=== PATIENT | male | born 1945 | race Caucasian/White ===

== ENCOUNTER 2024-04-07 13:06 | Inpatient (IN) | payer MEDICARE, OTHER, SELFPAY ==
[2024-04-07] VITALS (17 sets, daily range): BP systolic 140–168; BP diastolic 69–103; BMI 30.9; BMI 29.3
--- NOTE | 2024-04-07 11:09 | HPS.HSE ---
Addendum entered and electronically signed by Jose Abreu MD 04/07/24 12:57:
I saw and examined the patient.
The BRUSH MACHINE SETTER's note was reviewed and I agree with the note.
Comment: 79 y/o male with dyslipidemia, right carotid stenosis (followed by Dr. Metz, and history of left CEA 2013), GERD, HTN, and JOHN on CPAP who has been having chest discomfort with exertion. More recently, he noticed it with taking out the
trash, which was unusual since he typically only feels SOB with this. Initially I offered cath and med management but given stable symptoms, we decided to further risk stratify with [facility]. It was high risk, and I am recommending direct cardiac cath.
On exam he has no m/r/g, rrr lungs cta, he is obes.
CAD: will proceed to cath. continue to optimize med therapy. HTN: chronic stable. Obesity, wt loss needed.
d/w Dr El
Original Note:
Family Physician
-
Family Physician: Dr. Jerrod Caldwell
Administrative Associate: Dr. Abreu
Chief Complaint
-
chest discomfort, abnormal stress test
History of Present Illness
79 y/o male with dyslipidemia, right carotid stenosis (followed by Dr. Metz, and history of left CEA 2013), GERD, HTN, and JOHN on CPAP who has been having chest discomfort with exertion. More recently, he noticed it with taking out the trash, which
was unusual since he typically only feels SOB with this. He had a stress echo today, which was abnormal and he is sent to the ER and will be admitted for cath. He is CP free at the time of my assessment.
Medical History
Past Medical History
Past Medical History: Reports HTN, Hypercholesterolemia and Other (carotid disease, JOHN)
Past Surgical History: Reports Other (CEA)
Social History
Tobacco: Non-smoker
Alcohol: Daily (wine)
Family History
Family History: Hypertension (mom)
Allergies / Home Medications
Allergies reflects when Allergies were last updated in [employer].
Home Medications with original date entered in [employer]
Allergy/Medication List:
Allergies: NKDA
Home medications:
Aspirin 81 mg PO daily
Azelastine 137 mcg 1 spray per nostril BID
Benzonatate 200 mg PO TID
Finasteride 5 mg PO daily
Flonase 50 mcg/ACT spray 1 spray per nostril daily
folic acid 400 mcg daily PO
Losartan/HCTZ 100/25 mg PO daily
Crestor 40 mg PO daily
Nitro PRN
Review of Systems
-
History Source: Patient
A 12 point ROS was completed and negative except as noted: Yes
Cardiac: Reports Chest Pain
Physical Exam
Vital Signs
Vital Signs
Temp Pulse Resp BP Pulse Ox
98.1 F 83 18 168/88 95
04/07/24 10:55 04/07/24 10:55 04/07/24 10:55 04/07/24 10:55 04/07/24 10:55
Physical Exam
General: Well Developed, Well Nourished and No Apparent Distress
HEENT: NormoCephalic and Anicteric
Respiratory: Clear and Non Labored Respirations
Cardiac: Regular Rhythm
Skin: Warm and Dry
Neuro: AO x 3
Psych: Calm
Data Reviewed
-
Medical Tests (Nuc Med, Echo, EKG etc): Image Personally Visualized and interpreted (EKG NSR) and Report Reviewed by me (Stress echo as noted below)
Lab Data: Labs Reviewed by me (05/20/23 LDL 88) and Other (updated labs are pending)
Impression/Plan
-
IMPRESSION/PLAN:
Abnormal stress test, chest discomfort:
-Stress echo 04/07/24: Abnormal stress echocardiogram. EKG changes to 3 mm in 2, 3, aVF, V5, V6 and in aVR elevation seen with exercise. Mild chest pain peak immediately upon completing exercise. LAD and left circumflex wall motion abnormalities
with stress. EF drops from 65 to 70% to 40% with exercise. LV dilated with exercise. Overall, this is a high risk test result.
-high risk stress test as below. Suspected coronary artery disease with angina (has been stable noted with exertion, but has become progressive), which is threat to life.
-No CP currently
-continue ASA (already took this AM), statin, metoprolol
-cardiac catheterization today- discussed procedure with patient
-check hgbA1C and Lipids
-EKG stable. Trop pending in ER- if elevated, will trend.
JOHN:
-continue CPAP
Dyslipidemia:
-update labs
-continue statin. Continue Zetia (recently started).
Carotid artery disease:
-continue ASA and statin and follow with vascular team
HTN:
-elevated in ER
-continue meds and monitor
Obesity:
-will benefit from diet, exercise, and weight loss in long-term
--- NOTE | 2024-04-07 11:22 | ED.GENMED ---
History of Present Illness
General
Chief Complaint: Chest Pain
Source: patient
Exam Limitations: none
Time Seen by Provider: 04/07/24 11:02
Nursing documentation reviewed up to this point in time: agreed with
History of Present Illness
History of Present Illness:
79 y/o M with h/o HTN, JOHN, HLD
carotid stenosis
here from [facility] for abnormal + stresst est showing ischemic changes 3 mm lateral depression while donig an exercise stress test today
echo showed anterior interseptal hypokinesis
he is currently pain free
while on the treadmill he felt sob but no CP
had previously ahd angina with exertion which is what lead him tohavig the stress
NPO
no nausea, vomiting, leg swelling
Past History
Past History
ED Past Medical History: GERD, HTN, Hypercholesterolemia, Other (Obstructive sleep apnea) and Other (Carotid disease)
ED Past Surgical History: Orthopedic, Urological and Other (Uvulectomy, left carotid endarterectomy 2013)
Social History
Tobacco: Non-smoker
Alcohol: Daily (Wine with dinner)
Personal:
Living: with family
Employment: Retired
Family History
Family History: Other (Noncontributory.)
Review of Systems
Review of Systems
Allergies reviewed?: Yes
All Other Systems: Not applicable
Phy Exam
Physical Exam
Physical Exam:
GENERAL: Alert , in no apparent distress
EYE: pupils equal and reactive
NECK: Supple
ENT: o/p clr, mmm.
CARDIAC: Regular rate and rhythm .
LUNGS: Clear breath sounds bilaterally, no acute respiratory distress, no wheezes/rales/rhonchi
ABDOMEN: Soft, without focal tenderness, no r/g, no cvat, normal bowel sounds
NEUROLOGICAL: Alert and oriented, no focal neuro deficits
SKIN: Warm and dry, skin intact.
MUSCULOSKELETAL: No edema, well perfused. neg carl's sign
PSYCH: Normal and appropriate interaction.
Scores
Heart Score for Chest Pain Patients
STEMI patient?: No
History: Highly Suspicious
ECG: Nonspecific Repolarization
Age: >/= 65 years
Risk Factors: >/= 3 Risk Factors or History of CAD
Troponin: </= Normal Limit
Heart Score for Chest Pain Patients: 7
Heart Score Risk: 72.7 % MACE over next 6 weeks
Course
Orders/Labs/Results
Orders:
Orders
04/07/24 Lunch
Cholesterol Lowering
At Your Request: Full Participation
Does patient need a safe tray?: No
Cholesterol Lowering: Sodium, 2 Gram
04/07/24 11:00
Electrocardiogram (*1) Urgent
Reason for Study: Chest Pain
04/07/24 11:01
EKG- Treatment ONCE
04/07/24 11:22
Complete Blood Count/With Diff Urgent
Comprehensive Metabolic Panel Urgent
Glycohemoglobin (HgbA1c) Urgent
Troponin I Urgent
04/07/24 11:36
Admit/Transfer Patient As Directed
Co-Sign Provider:
Level of Care: Inpatient admission
Assign to:: IVU
Physician / Group: Dr. Alvarez
Diagnosis: CAD, abnormal stress test, chest discomfort
Reason for Hospitalization: abnormal stress test, chest discomfort
Expected length of stay greater than two midnights?: Yes
ELOS- Estimated Length of Stay in days: 3
I certify the patient meets the requirements for IP care: Yes
04/07/24 11:57
Midazolam HCl [Versed] 2 mg .ROUTE .STK-MED ONE
Verapamil Injectable [Isoptin/Verapamil Injection] 5 mg .ROUTE .STK-MED ONE
04/07/24 11:58
Fentanyl Citrate/Pf [Sublimaze] 100 mcg .ROUTE .STK-MED ONE
Heparin 10,000 units .ROUTE .STK-MED ONE
Heparin 1000 Units/500 ml [Heparin] 1,000 units in 500 ml .ROUTE .STK-MED
Heparin Sodium,Porcine/Ns/Pf [Heparin 2000 Units/1000 ml] 2,000 unit in 1,000 ml .ROUTE .STK-MED
Lidocaine HCl/Pf [Xylocaine-Mpf 1% Vial] 50 mg .ROUTE .STK-MED ONE
Nitroglycerin [Tridil] 1,500 mcg .ROUTE .STK-MED ONE
04/07/24 12:00
Metoprolol Xl [Toprol Xl] 25 mg PO DAILY
04/07/24 12:18
Case Management Consult ONCE
Case Management Consult: Discharge Planning
Activity As Directed
Activity Level: Bathroom Privileges
With Assistance
INT (Intravenous Needle Therapy) As Directed
Comment: maintain peripheral IV access
Intake/ Output As Directed
Frequency: Per unit guidelines
Vital Signs As Directed
Frequency: q4h
Weight As Directed
Frequency: Once
Cpap [RESP] Routine
Patient to use own unit?: Yes
Instructions: QHS. If he does not have his own, please use his home settings on our machine. TY.
DX Deep Vein Thrombosis Video Routine
04/07/24 12:52
Activity As Directed
Activity Level: Out of Bed- Ad Umu
Activity Frequency: Ad Umu
Dairy Farm Operator Procedure As Directed
Cardiac Cath Procedure: cardiac catheterization
Notify MD As Directed
Notify physician if: immediately for chest pain or bleeding from access site(s)
Radial Artery Hemostasis Method As Directed
Instructions:: 3 mL out at 1 hour post placement of band
3 mL out at 1 1/2 hours post placement of band
3 mL out at 2 hours post placement of band
Off at 2 1/2 hours post placement of band
If any oozing or hemotoma occurs:: re-inflate band and call provider
Site Checks As Directed
Check access site for bleeding/hematoma: Yes
Comment: on arrival, Q15min x4, Q30min x2, Q1 hr x2, Q2 hr x2, Q4 hr or per
protocol
Vascular Checks As Directed
Location: distal to access site - pulse check
Frequency: Other
Comment: on arrival, Q15min x4, Q30min x2, Q1 hr x2, Q2 hr x2, Q4 hr or per protocol
Vital Signs As Directed
Frequency: Other
Additional Instructions:: on arrival, Q15min x4, Q30min x2, Q1 hr x2, Q2 hr x2, then Q4 hr or per unit
protocol
04/07/24 12:53
Potassium Chloride [KCl] 40 meq PO NOW STA
04/07/24 12:55
Cardiothoracic Surgery Consult Routine
Consulting Provider: Chava Mcintyre
Was physician already notified: Yes
Reason for Consult: CABG eval
04/07/24 13:00
0.9% Sodium Chloride 1000 ml [Nss] 1,000 ml IV PER PROTOCOL
Infusion rate in mL/kg/hr:: 1.5
Infusion rate in mL/hr:: 159
Duration of infusion (hours):: 3
04/07/24 13:23
Nitroglycerin Sublingual [Nitrostat (Sublingual)] 0.4 mg SL [id number] PRN
04/07/24 16:00
Troponin I Routine
Benzonatate [Tessalon Perles] 200 mg PO TID
04/07/24 18:00
Rosuvastatin Calcium [Crestor] 40 mg PO QPM
04/07/24 22:00
Cholecalciferol (Vitamin D3) [VITAMIN D3 (cholecalciferol)] 25 mcg PO HS
Ezetimibe [Zetia] 10 mg PO HS
Ezetimibe [Zetia] 10 mg PO HS
Metoprolol Xl [Toprol Xl] 25 mg PO HS
04/08/24 08:00
Aspirin Chewable [Low Strength Aspirin] 81 mg PO DAILY
FOLic ACID [Folvite] 0.4 mg PO DAILY
Finasteride [Proscar] 5 mg PO DAILY
Loratadine [Claritin] 10 mg PO DAILY
fluticasone propionate 2 spray NASAL DAILY
04/08/24 18:00
Enoxaparin Sodium [Lovenox] 40 mg SC QPM
Abnormal Lab Results
04/07/24
11:22
RBC 4.35 L 10^6/uL
(4.70-6.10)
Hct 38.0 L %
(39.0-52.0)
MCH 31.5 H pg
(27.0-31.0)
Monocytes % 9.8 H %
(1.7-9.3)
BUN 25 H mg/dl
(9-20)
Glucose 128 H mg/dl
(70-99)
ALT 69 H U/L
(0-50)
04/07/24 11:22
04/07/24 11:22
Vital Signs
Initial and Last Documented VS:
Initial Vital Signs
Temp Pulse Resp BP Pulse Ox
98.1 F 83 18 168/88 95
04/07/24 10:55 04/07/24 10:55 04/07/24 10:55 04/07/24 10:55 04/07/24 10:55
Last Documented Vital Signs
Temp Pulse Resp BP Pulse Ox
97.6 F 75 18 144/86 98
04/07/24 15:23 04/07/24 13:45 04/07/24 15:23 04/07/24 13:45 04/07/24 15:23
MDM/Problems Addressed
Differential Diagnosis Includes:
+ stress test, angina, NSTEMI
MDM/Problems Addressed:
79 y/oM
h/o htn, hld
sent from [facility] for + stress echo
here for admission to [facility] for cath
pt is pain free now
i sp[amira iwth dr. alvarez who said ok to hold heparin unless troponin positive
pt requires admission
*Critical Care Note
Total Time (30-74mins, 75-104mins- exclusive of procedures): Not Applicable
ED Attending Note
-
Portions of this chart may have been created with voice recognition software.� Occasional wrong word or��sound alike� substitutions may have occurred due to the inherent limitations of voice recognition software.
Discharge Plan
Departure
Patient Disposition: Admit
Date of Disposition: 04/07/24
Time of Disposition: 11:47
Admit to: Telemetry
Admit to doctor: franklin
Presentation/result/management discussed w/ accepting /DO: franklin
Condition: Fair
Discharge Problem:
Abnormal cardiovascular stress test
Interventions
Interventions:
*General Assessment Last Done: 04/07/24 10:55
*Neglect/Abuse Screening Last Done: 04/07/24 10:55
*Nursing Disposition Last Done: 04/07/24 12:24
ED- Cardiac Assessment Last Done: 04/07/24 11:54
Discharge Date and Time
Discharge Date/Time: 04/07/24 12:24
[2024-04-07 11:33] LABS: % Basophils 0.6 % (0-2); % Eosinophils 1.5 % (0-6); % Immature Granulocytes 0.2 % (0-0.5); % Lymphocytes 22.1 % (20.5-51.1); % Monocytes 9.8 % (1.7-9.3); % Neutrophils 65.8 % (42.2-75.2); Absolute Eosinophils 0.1 10^3/uL (0-0.7); Absolute Lymphocytes 1.2 10^3/uL (1.2-3.4); Absolute Monocytes 0.5 10^3/uL (0.1-0.6); Absolute Neutrophils 3.5 10^3/uL (1.4-6.5); Hemoglobin 13.7 g/dL (13.0-18.0); Mean Corp Hgb Conc. 36.1 g/dL (33.0-37.0); Mean Corpuscular Hgb 31.5 pg (27.0-31.0); Mean Corpuscular Volume 87.4 fL (80.0-94.0); Mean Platelet Volume 9.5 fL (7.4-10.4); Nucleated Red Blood Cells % 0 % (-); Platelet Count 152 10^3/uL (130-400); Red Blood Cell Count 4.35 10^6/uL (4.70-6.10); White Blood Cell Count 5.3 10^3/uL (4.8-10.8)
[2024-04-07 11:50] LABS: ALT (SGPT) 69 U/L (0-50); AST (SGOT) 38 U/L (17-59); Albumin 4.5 g/dl (3.5-5.0); Alkaline Phosphatase 51 U/L (38-126); Blood Urea Nitrogen 25 mg/dl (9-20); Carbon Dioxide 30 mmol/L (22-30); Chloride 98 mmol/L (98-107); Estimated Creatinine Clearance 99 ml/min; Glucose 128 mg/dl (70-99); Potassium 3.6 mmol/L (3.5-5.1); Sodium 139 mmol/L (135-145); Total Bilirubin 0.9 mg/dl (0.2-1.3); Total Protein 6.9 g/dl (6.3-8.2); eGFR > 60.00
[2024-04-07 11:59] LABS: Troponin I < 0.012 ng/ml
[2024-04-07] MEDS: NSS 1000 IV (13:36)
[2024-04-07] MEDS: KCL 40 MEQ PO (13:37)
--- NOTE | 2024-04-07 14:10 | ITS.CL.CATH ---
Electromechanical Technologist - Catheterization
Cardiac Catheterization
Procedure Report:
CARDIAC CATHETERIZATION REPORT
Date of Procedure: 04/07/2024
Referring: Crystal Abreu M.D.
INDICATION: Typical angina, high risk stress test.
PROCEDURE:
1. Left heart catheterization.
2. Coronary angiography.
ACCESS:
6 Finnish right radial artery.
CATHETERS:
1. 5 Finnish JR4.
2. 5 Finnish JL 3.5.
HEMODYNAMIC DATA
Weight (kg): 105.7
AO (s/d/x, mmHg): 143/70/98
LV (s/x mmHg): 143/14
LEFT VENTRICULOGRAPHY: Not performed.
CORONARY ANGIOGRAPHY
Dominance: Left.
Left Main: Short, bifurcating vessel. There is no obvious coronary artery disease.
LAD: Large size vessel giving rise to several small diagonals. There is a densely calcified, 90% true ostial lesion in the ostium/proximal LAD. There is a 70% lesion in the mid LAD, spanning the origin of one of the small diagonals.
Ramus: Congenitally absent.
Circumflex: Large size, dominant vessel giving rise to 3 obtuse marginals. OM1 is a large vessel supplying the majority of the lateral wall as to daughter vessels. OM 2 is a smaller vessel supplying much of the inferolateral wall. The
circumflex then terminates as a left posterior descending artery. There is a 30% lesion in the proximal circumflex.
RCA: Small size, nondominant vessel. The vessel is chronically totally occluded in its proximal margin with a bridging collateral reconstituting the vessel through a right ventricular marginal branch.
INTERVENTION(S)
None.
Closure Device: Vascular band.
Radiation (mGy): 400.74
DAP (cm2.Gy): 29.9160
Fluoroscopy time (minutes): 2.8
Sedation time (minutes): 17
CONCLUSIONS
1. Left dominant circulation with a 30% lesion in the proximal circumflex, a 70% lesion in the mid LAD and a densely calcified, 90%, true ostial lesion in the ostium/proximal LAD.
2. Normal filling pressures (LVEDP = 14 mmHg at 105.7 kg).
RECOMMENDATIONS:
1. Expectant management after cardiac catheterization via right radial approach.
2. Limited weight bearing on the right wrist for one week.
3. Consultation with CT surgery regarding optimal revascularization strategy. The proximal nature of the LAD lesion makes PCI potentially risky procedure given the potential for plaque shift and compromise of a dominant circumflex. PCI may be
possible, though the stent would certainly protrude into the left main coronary artery.
4. Aggressive secondary prevention with ezetimibe. He would benefit from high-dose, high potency statin.
5. Echocardiogram ordered and pending.
Copy to: Chava Mcintyre M.D., Crystal Abreu M.D., Reza Liu M.D.
Larry El DO, FACC, FACP
--- NOTE | 2024-04-07 14:15 | CONSULT.CT ---
Consultation
-
Date/Time Consultation Requested: 04-29
Date/Time Consultation Performed: 04-29
Requesting Provider: Dr. El
Performing Provider: Joseline hager
Reason for Consultation: cabg eval.
Patient History
Physicians
Family Physician: Reza Liu ([address]
Outpatient Cafeteria Food Server: Dr. Abreu
History of Present Illness
Patient is a 79-year-old male with history of hypertension, hyperlipidemia, obstructive sleep apnea with CPAP at home, GERD, obesity, carotid stenosis, PAD.
Patient complains of substernal chest pain with exertion. Pain is described as central nonradiating pain brought on with exertion. Pain is relieved with rest. He also complains of shortness of breath along with a substernal chest pain. He
underwent stress testing today which was abnormal. There was EKG changes 3 mm in lead II, 3, aVF, V5, V6 and in aVR. Ejection fraction dropped from 65 to 40% with exercise. LV dilated with exercise. He was admitted and underwent cardiac
catheterization today which revealed critical coronary artery disease. Cardiothoracic surgery consulted for CABG evaluation.
Preoperative studies ordered. All studies will be reviewed with attending cardiothoracic surgeons and will discuss with patient later this week.
Surgeons will discuss surgical plan and timing with patient and family later.
Past Medical History
Past Medical History: Angina, CAD, Covid-19, ELLISON, GERD, HTN, Hypercholesterolemia, JOHN and SOB
Obesity
PAD
Right carotid stenosis, status post left CEA followed by Dr. Metz
Past Surgical History
Past surgical history:
Left CEA Dr. Metz
Hydrocele
Multiple skin cancer surgeries
Spine surgery
Right total knee replacement
Family History
Mother: at Age ( at age 97)
Father: at Age ( from lung cancer)
Family Medical History: Hypertension and Other (Hyperlipidemia)
Social History
Alcohol: Daily (Drinks wine daily)
Drug: None
Tobacco: Non-Smoker (Rarely smokes a cigar)
Personal:
Living: With Spouse
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
Covid Vaccination History:
History of COVID infection in the past but was asymptomatic, history of COVID-vaccine denies COVID booster
Allergies
Allergy/AdvReac Type Severity Reaction Status Date / Time
No Known Drug Allergies Allergy NKDA Verified 06/22/17 22:08
Enviornmental Allergy Runny Uncoded 06/22/17 22:08
nose,
sneezing,
cough,
itchy eyes
Home Medications
�Medication �Instructions �Recorded �Confirmed �Type
aspirin 81 mg tablet,delayed 81 mg PO DAILY 06/24/14 04/07/24 History
release
folic acid 400 mcg tablet 0.4 mg PO DAILY ##0 06/29/14 04/07/24 History
ascorbic acid 100 mg-zinc sulfate 1 tab PO HS 04/07/24 04/07/24 History
200 mg tablet
azelastine 137 mcg (0.1 %) nasal 1 spray intranasal BIDPRN PRN 04/07/24 04/07/24 History
spray allergies
benzonatate 200 mg capsule 200 mg PO TID 04/07/24 04/07/24 History
cholecalciferol (vitamin D3) 25 25 mcg PO HS 04/07/24 04/07/24 History
mcg (1,000 unit) tablet (Vitamin
D3)
ezetimibe 10 mg tablet (Zetia) 10 mg PO HS 04/07/24 04/07/24 History
finasteride 5 mg tablet 5 mg PO DAILY 04/07/24 04/07/24 History
fluticasone propionate 50 2 spray intranasal DAILY 04/07/24 04/07/24 History
mcg/actuation nasal
spray,suspension
loratadine 10 mg tablet (Claritin) 10 mg PO DAILY 04/07/24 04/07/24 History
losartan 100 1 tab PO DAILY 04/07/24 04/07/24 History
mg-hydrochlorothiazide 25 mg tablet
metoprolol succinate 25 mg 25 mg PO HS 04/07/24 04/07/24 History
tablet,extended release 24 hr
(Toprol XL)
zolpidem 5 mg tablet (Ambien) 5 mg PO HSPRN PRN sleep 04/07/24 04/07/24 History
Review of Systems
-
History Source: Patient and Family
General: Reports Fatigue
HEENT: Reports No Symptoms
Respiratory: Reports SOB and ELLISON
Cardiac: Reports Chest Pain, CAD and Known Vascular Disease
Abdomen/GI: Reports Reflux
: Reports Nocturia
Musculoskeletal: Reports Arthralgias and Joint Pain
Skin: Reports Other (Multiple skin cancer surgeries)
Neurological: Reports No Symptoms
Vascular: Reports PVD (History of left carotid artery 2013, followed for a right carotid stenosis -Dr. Metz)
Physical Exam
Vital Signs
Temp 98.1 F 04/07/24 10:55
Temp route: Oral 04/07/24 10:55
Pulse 75 04/07/24 13:45
Resp Rate 22 04/07/24 12:09
Blood pressure 144/86 04/07/24 13:45
MAP (cuff-Ingrid Monitor) 103 04/07/24 13:45
SaO2 97 04/07/24 13:45
Oxygen Mode of Delivery Room air 04/07/24 10:55
Can the patient verbally communicate their pain? Yes 04/07/24 14:01
Pain scale ratin 04/07/24 14:01
Actual Weight 222 lb 04/07/24 14:14
Body Mass Index (BMI) 29.3 04/07/24 14:14
Labs
04/07/24 11:22
04/07/24 11:22
Troponin I < 0.012 ng/ml 04/07/24 11:22
Exam
General: Well Developed, Well Nourished, No Apparent Distress and Comfortable
HEENT: Normocephalic, Anicteric and Atraumatic
Neck: Carotid Bruit (Soft carotid bruit on the right, well-healed carotid endarterectomy scar on the left neck)
Respiratory: Clear
Cardiac: Regular Rhythm and Carotid Pulses (Right carotid bruit, left carotid endarterectomy scar, well-healed)
GI: Soft, Non Tender, Non Distended, Normal Bowel Sounds and Other (Obese)
Rectal: Deferred by Provider
Skin: Warm and Dry
Neuro: Awake, Alert, Oriented and AO x 3
Extremities: Pulses (Feet cool dry, dorsalis pedis pulses 1+ bilaterally, posterior tibial pulses 1+ bilaterally)
Lymph: No Lymphadenopathy
Psych: Calm
Assessment / Plan
-
Assessment:
Coronary artery disease status post cath
Hypertension
Hyperlipidemia
Obstructive sleep apnea uses CPAP at home
Obesity
PAD status post left carotid endarterectomy 2014, right carotid bruit-will obtain carotid ultrasoun
GERD
Osteoarthritis/DJD-status post right total knee replacement
Plan:
Preoperative studies ordered
All studies to be reviewed with attending cardiothoracic surgeons and will follow-up and discuss surgical plan and timing with patient.
Data Reviewed
-
EKG: Report Reviewed by me
Echo: Report Reviewed by me
--- NOTE | 2024-04-07 15:53 | CM ---
Chart reviewed. Patient is independent of ADLS, lives with his in a 2 STH, 2 SYBIL, 0 DME. Patient waiting for CT evaluation. Plan is for the patient to return home. CM to follow
[2024-04-07] MEDS: TESSALON PERLES 200 MG PO ×2 (15:57→22:01)
[2024-04-07] MEDS: CRESTOR 40 MG PO (17:56)
[2024-04-07] MEDS: TOPROL XL 25 MG PO (22:01)
[2024-04-07] MEDS: VITAMIN D3 (cholecalciferol) 25 MCG PO (22:01)
--- NOTE | 2024-04-07 23:16 | PTCARENOTE ---
Pt rec'd oob in recliner chair no c/o cp or sob. Right radial site patent with no active bleeding or hematoma present. Pt on Astapro and Flonase at home. Orders obtained from PA but meds are non formulary. Pt aware spouse will have to bring in from
home and have sent to pharmacy for barcoding. Sinus on telemetry
[2024-04-08] VITALS (9 sets, daily range): BP systolic 110–183; BP diastolic 67–92; BMI 30.7
[2024-04-08 08:21] LABS: Glycohemoglobin (HgbA1c) 5.8 % (4.0-5.6)
[2024-04-08] MEDS: LOW STRENGTH ASPIRIN 81 MG PO (11:01)
[2024-04-08] MEDS: PROSCAR 5 MG PO (11:01)
[2024-04-08] MEDS: TESSALON PERLES 200 MG PO ×3 (11:01→22:26)
[2024-04-08] MEDS: ZETIA 10 MG PO (11:01)
[2024-04-08] MEDS: FOLVITE 0.4 MG PO (11:02)
--- NOTE | 2024-04-08 11:20 | CM ---
Chart reviewed. Patient is independent of ADLS, lives with his in a 2 STH, 2 SYBIL, 0 DME. Patient waiting to be evaluated by CT Surgery. Plan is for the patient to return home. CM to follow
[2024-04-08] MEDS: CLARITIN 10 MG PO (11:29)
[2024-04-08] MEDS: COREG 6.25 MG PO ×2 (11:32→20:53)
--- NOTE | 2024-04-08 13:14 | W.PN.CD ---
Today's Communication / Plan
-
Echo.
CABG planning (inpatient vs. expedited outpatient).
Restart losartan and HCTZ.
Impression / Plan
-
Impression/Plan: 79 y/o male with CHATO, HTN, HLD, JOHN and HLD admitted after stress echocardiogram for chest discomfort was markedly abnormal, prompting urgent coronary angiography, subsequently confirming significant, obstructive CAD in the ostial
LAD and mid LAD.
#CAD
-New diagnosis. Highly abnormal stress test.
-Cardiac catheterization shows an ostial 90% lesion in the LAD, followed by a 70% lesion in the mLAD. There is a 30% lesion in the proximal, dominant LCx.
-The angulation and position of the ostial LAD lesion make it less than ideal for percutaneous intervention.
-Echocardiogram pending.
-CT surgery has been consulted for single vessel CABG (MID-CAB).
-Continue rosuvastatin, beta amy and aspirin.
#Hypertension
-Chronic, currently uncontrolled.
-Currently on carvedilol.
-Restart losartan and HCTZ.
#HLD
-Chronic, stable.
-High dose, high potency statin.
#CHATO
-Chronic, stable.
-Continue aspirin and statin.
#Dispo
-Currently inpatient, IVU status.
-Full code.
-Discussion with CTS regarding inpatient CABG vs. discharge and elective CABG next week.
Subjective/Interval History:
The patient underwent cardiac catheterization yesterday.
CABG eval ongoing.
Hypertensive today.
Metoprolol changed to carvedilol for assistance with BP control.
DATA:
Cardiac catheterization, 04/07/2024:
CONCLUSIONS
1. Left dominant circulation with a 30% lesion in the proximal circumflex, a 70% lesion in the mid LAD and a densely calcified, 90%, true ostial lesion in the ostium/proximal LAD.
2. Normal filling pressures (LVEDP = 14 mmHg at 105.7 kg).
Stress Echocardiogram, 04/07/2024:
CONCLUSIONS
Abnormal stress echocardiogram.
EKG changes to 3 mm in 2, 3, aVF, V5, V6 and in aVR elevation seen with
exercise.
Mild chest pain peak immediately upon completing exercise.
LAD and left circumflex wall motion abnormalities with stress.
EF drops from 65 to 70% to 40% with exercise. LV dilated with exercise.
Overall, this is a high risk test result. Patient sent to the emergency room
upon completion of testing.
Physical Exam
Vital Signs/Labs
Vital Signs
Temp Pulse Resp BP Pulse Ox
36.7 C 69 16 175/87 98
04/08/24 11:32 04/08/24 11:32 04/08/24 11:32 04/08/24 11:32 04/08/24 07:32
04/07/24 04/08/24 04/09/24
11:59 11:59 11:59
Actual Weight 106.1 kg 105.6 kg
04/07/24 11:22
04/07/24 11:22
LAB Results
04/07/24 04/07/24
11:22 16:00
Troponin I < 0.012 0.030 D
Physical Exam
Constitutional: No acute distress and Comfortable
EENT: Anicteric and Moist mucous membranes
Cardiovascular: Rhythm & rate is regular, Pedal edema is absent, JVD pressure is normal, S1S2 is normal and Murmur/rub/gallop absent
Respiratory: Respiratory effort normal, Lungs clear to auscul., Wheeze Absent, Crackles Absent and Rhonchi Absent
GI: Soft, Distention absent, Flat, Non tender and Normal bowel sounds
Neuro/Psych: AO x 3
Other: Cath Site (Right radial access site is C/D/I.)
Data Reviewed
-
Date of Service: April 08, 2024
Medical Decision Making: Reviewed Test Results, Independent Historian Assessment, Test Interpretation and Review of Case with other Provider
EKG: Tracing Personally Visualized and interpreted and Report Reviewed by me
Echo: Ordered by me
X-Ray/CT/US/MRI/NUC/PET: Image Personally Visualized and interpreted and Report Reviewed by me
Medical Tests (PFT, Pathology etc): Image Personally Visualized and interpreted and Report Reviewed by me
Labs: Labs Reviewed by me
--- NOTE | 2024-04-08 15:02 | CARDSERVLU ---
Echocardiogram with Lumason completed after protocol screening completed. Allergies verified.
Patent IV site: Right arm 20 G PC site clear
IV site flushed with 0.9% NaCl pre and post administration.
Diluted bolus method utilized to enhance visualization of ventricular melchor.
Total volume given: __4__ mL
Patient tolerated all procedures well without complications.
--- NOTE | 2024-04-08 15:12 | W.PN.UPDATE ---
Update Note
Progress Note Update
Procedure Type:�Isolated CABG
PERIOPERATIVE OUTCOME ESTIMATE %
Operative Mortality 1.19%
Morbidity & Mortality 4.35%
Stroke 0.52%
Renal Failure 0.774%
Reoperation 1.94%
Prolonged Ventilation 2.03%
Deep Sternal Wound Infection 0.099%
Long Hospital Stay (>14 days) 2.22%
Short Hospital Stay (<6 days)* 56.2%
*higher values reflect a better outcome
Clinical Summary
Planned Surgery: Isolated CABG, Urgent, First cardiovascular surgery
Demographics: 79 year old, White, male, 105kg, 185cm, BMI: 30.7 kg/m�
Insurance/Payor: Medicare
Lab Values: Creatinine: 0.8 mg/dL, Hematocrit: 38%, WBC Count: 5.3 10�/�L, Platelet Count: 085518 cells/�L
Substance Abuse: Never smoker, Alcohol use: 2-7 drinks/week
Risk Factors / Comorbidities: Hypertension
Pulmonary RF: Sleep Apnea
Vascular RF: Cerebrovascular Disease: Other CVD, Peripheral Artery Disease, Prior Carotid Surgery
Cardiac Status: Ejection Fraction = 65%
Coronary Artery Disease: 1 vessel diseased, Proximal LAD Stenosis >=70%, Stable Angina
Valve Disease: Trivial/Trace MR
--- NOTE | 2024-04-08 16:27 | CM ---
Reviewed preoperative and postoperative instructions and restrictions, along with showering instructions. Gave patient 2 soaps. Also gave patient Cardiac Surgery Book. Patient is agreeable to a home visit by CT Transitional RN. Patient is
independent of ADLS, lives with his in a 2 STH, 2 SYBIL, 0 DME. Plan is for the patient to return home with CT Transitional RN.
--- NOTE | 2024-04-08 17:20 | W.PN.UPDATE ---
Update Note
Progress Note Update
Patient was seen with Dr. Mcintyre this afternoon. Consent was obtained. After discussion with cardiology, a decision was made for him to go home over the weekend and return on Friday for surgery. Consent and type and screen was obtained.
Preoperative instructions were given. Anesthesia consult placed and pending.
[2024-04-08] MEDS: HYZAAR 50-12.5 1 TAB PO (18:26)
[2024-04-08] MEDS: CRESTOR 40 MG PO (18:27)
[2024-04-08 20:45] LABS: Hepatitis C Antibody Negative (Negative)
[2024-04-08] MEDS: VITAMIN D3 (cholecalciferol) 25 MCG PO (22:26)
--- NOTE | 2024-04-09 00:22 | PTCARENOTE ---
Assumed care of patient at 23:00. Pt AAOx3, tele monitor shows SR w/ occasional PVCs, and sating 96% RA. Pt denies any pain or discomfort at this time. Right radial dressing intact and pt aware of activity restrictions. Pt aware of POC, and can make
needs known. Call jc within reach.
--- NOTE | 2024-04-09 01:15 | W.PN.UPDATE ---
Update Note
Progress Note Update
-will need to hold Hyzaar at discharge (48 hrs) for CABG on Friday
[2024-04-09 04:50] VITALS: BP 141/77
[2024-04-09 08:12] VITALS: BP 140/83
[2024-04-09] MEDS: CLARITIN 10 MG PO (08:13)
[2024-04-09] MEDS: TESSALON PERLES 200 MG PO (08:13)
[2024-04-09] MEDS: PROSCAR 5 MG PO (08:13)
[2024-04-09] MEDS: FOLVITE 0.4 MG PO (08:13)
[2024-04-09] MEDS: HYZAAR 50-12.5 1 TAB PO (08:13)
[2024-04-09] MEDS: LOW STRENGTH ASPIRIN 81 MG PO (08:13)
[2024-04-09] MEDS: ZETIA 10 MG PO (08:13)
[2024-04-09] MEDS: COREG 6.25 MG PO (08:13)
--- NOTE | 2024-04-09 08:22 | W.PN.CD ---
Today's Communication / Plan
-
stop hyzaar
home on HCTZ 12.5mg a day
hydralazine 10mg po bid for over the weekend
Impression / Plan
-
Impression/Plan: 79 y/o male with CHATO, HTN, HLD, JOHN and HLD admitted after stress echocardiogram for chest discomfort was markedly abnormal, prompting urgent coronary angiography, subsequently confirming significant, obstructive CAD in the ostial
LAD and mid LAD.
#CAD
-New diagnosis. Highly abnormal stress test.
-Cardiac catheterization shows an ostial 90% lesion in the LAD, followed by a 70% lesion in the mLAD. There is a 30% lesion in the proximal, dominant LCx.
-The angulation and position of the ostial LAD lesion make it less than ideal for percutaneous intervention.
-plan is for surgery Friday, will go home and return
-will hold arb over the weekend and add a small dose of hydralazine.
-Continue rosuvastatin, beta amy and aspirin.
#Hypertension
-Chronic, currently uncontrolled.
-Currently on carvedilol.
-Restart HCTZ. hold arb add hydralazine
#HLD
-Chronic, stable.
-High dose, high potency statin.
#CHATO
-Chronic, stable.
-Continue aspirin and statin.
#Dispo
-home today after ct surgery evaluation
Subjective/Interval History:
The patient underwent cardiac catheterization yesterday.
CABG eval ongoing.
Hypertensive today.
Metoprolol changed to carvedilol for assistance with BP control.
DATA:
Cardiac catheterization, 04/07/2024:
CONCLUSIONS
1. Left dominant circulation with a 30% lesion in the proximal circumflex, a 70% lesion in the mid LAD and a densely calcified, 90%, true ostial lesion in the ostium/proximal LAD.
2. Normal filling pressures (LVEDP = 14 mmHg at 105.7 kg).
Stress Echocardiogram, 04/07/2024:
CONCLUSIONS
Abnormal stress echocardiogram.
EKG changes to 3 mm in 2, 3, aVF, V5, V6 and in aVR elevation seen with
exercise.
Mild chest pain peak immediately upon completing exercise.
LAD and left circumflex wall motion abnormalities with stress.
EF drops from 65 to 70% to 40% with exercise. LV dilated with exercise.
Overall, this is a high risk test result. Patient sent to the emergency room
upon completion of testing.
Physical Exam
Vital Signs/Labs
Vital Signs
Temp Pulse Resp BP Pulse Ox
98.2 F 57 16 141/77 97
04/09/24 04:54 04/09/24 07:00 04/09/24 04:54 04/09/24 04:50 04/09/24 04:54
04/08/24 04/09/24 04/10/24
06:59 06:59 06:59
Actual Weight 105.6 kg
04/07/24 11:22
04/07/24 11:22
LAB Results
04/07/24 04/07/24
11:22 16:00
Troponin I < 0.012 0.030 D
Physical Exam
Constitutional: No acute distress
Cardiovascular: Rhythm & rate is regular, Pedal edema is absent, JVD pressure is normal and Systolic murmur absent
Respiratory: Respiratory effort normal, Lungs clear to auscul., Wheeze Absent, Crackles Absent and Rhonchi Absent
Data Reviewed
-
Date of Service: April 09, 2024
EKG: Other (tele sinus with very rare pvcs)
--- NOTE | 2024-04-09 10:18 | W.DS.TRANS ---
DC Summary - Manager Site
-
Discharge Instructions:
Discharge Diagnosis/Procedures CAD multi vessel CAD
Diet 2 Gram Sodium,Low Cholesterol
Activity No strenuous activity
Driving Restrictions As prior to admission
Bathing Restrictions None
Instructions:
Stand-Alone Forms:
Changes to Home Medications: Yes
Discharge Medications:
DC Medications w/original date entered in [facility]
aspirin 81 mg tablet,delayed release 81 mg PO DAILY 06/24/14
folic acid 400 mcg tablet 0.4 mg PO DAILY ##0 06/29/14
ascorbic acid 100 mg-zinc sulfate 200 mg tablet 1 tab PO HS 04/07/24
azelastine 137 mcg (0.1 %) nasal spray 1 spray intranasal BIDPRN PRN allergies 04/07/24
benzonatate 200 mg capsule 200 mg PO TID 04/07/24
cholecalciferol (vitamin D3) 25 mcg (1,000 unit) tablet (Vitamin D3) 25 mcg PO HS 04/07/24
ezetimibe 10 mg tablet (Zetia) 10 mg PO HS 04/07/24
finasteride 5 mg tablet 5 mg PO DAILY 04/07/24
fluticasone propionate 50 mcg/actuation nasal spray,suspension 2 spray intranasal DAILY 04/07/24
loratadine 10 mg tablet (Claritin) 10 mg PO DAILY 04/07/24
zolpidem 5 mg tablet (Ambien) 5 mg PO HSPRN PRN sleep 04/07/24
carvedilol 6.25 mg tablet 6.25 mg PO BID #60 tabs 04/09/24
hydralazine 10 mg tablet 10 mg PO BID #60 tabs 04/09/24
hydrochlorothiazide 25 mg tablet 25 mg PO DAILY #30 tabs 04/09/24
nitroglycerin 0.4 mg sublingual tablet 0.4 mg sublingual [id number] PRN chest pain #25 tabs 04/09/24
rosuvastatin 40 mg tablet 40 mg PO QPM #30 tabs 04/09/24
Home Medication Changes
Stop hyzaar.
HCTZ, Hydralazine, Coreg, Nitro and Crestor are all new.
Pending Results: No
[2024-04-09] MEDS: FLUAD (65 yr+) 2024-2025 FORMULA 0.5 ML IM (10:30)
--- NOTE | 2024-04-09 11:06 | PTCARENOTE ---
Rec'd Pt 0950, A,A+O x3 offers no complaints. He said he was just seen by anesthesia. He is for D/C home today.
== END 2024-04-09 12:19 | disposition home or self-care (01) | DRG 287 ==
LOC: IVU 13:06
PROVIDERS: Emergency Medicine; Internal Medicine Cardiovascular Disease; Nurse Practitioner; ADMITTING PHYSICIAN Internal Medicine Cardiovascular Disease; CONSULT PHYSICIAN Thoracic Surgery (Cardiothoracic Vascular Surgery); EMERGENCY PHYSICIAN Student in an Organized Health Care Education/Training Program; FAMILY PHYSICIAN Internal Medicine
PROC: B2111ZZ Fluoroscopy of Multiple Coronary Arteries using Low Osmolar Contrast (ICD-10-PCS; 2024-04-07)
PROC: 4A023N7 Measurement of Cardiac Sampling and Pressure, Left Heart, Percutaneous Approach (ICD-10-PCS; 2024-04-07)
PROC: 3E02340 Introduction of Influenza Vaccine into Muscle, Percutaneous Approach (ICD-10-PCS; 2024-04-09)
DX: I25.118 Atherosclerotic heart disease of native coronary artery with other forms of angina pectoris (principal); I65.21 Occlusion and stenosis of right carotid artery; I10 Essential (primary) hypertension; E66.9 Obesity, unspecified; Z68.30 Body mass index [BMI] 30.0-30.9, adult; I73.9 Peripheral vascular disease, unspecified; G47.33 Obstructive sleep apnea (adult) (pediatric); E78.5 Hyperlipidemia, unspecified; K21.9 Gastro-esophageal reflux disease without esophagitis; R94.39 Abnormal result of other cardiovascular function study; M17.11 Unilateral primary osteoarthritis, right knee; Z96.651 Presence of right artificial knee joint; Z79.82 Long term (current) use of aspirin; Z79.899 Other long term (current) drug therapy; Z86.16 Personal history of COVID-19; Z85.828 Personal history of other malignant neoplasm of skin; Z23 Encounter for immunization; Z82.49 Family history of ischemic heart disease and other diseases of the circulatory system; Z83.438 Family history of other disorder of lipoprotein metabolism and other lipidemia
CPT/HCPCS: 93017; 71046; 71275; 74174; 80053; 83036; 84484; 85025; 86803; 90662; 93005; 93306; 93350; 93458; 93880; 99284; C1894; G0008; Q9950; Q9957; Q9967

== ENCOUNTER 2024-04-12 04:43 | Inpatient (IN) | payer MEDICARE, OTHER, SELFPAY ==
--- NOTE | 2024-04-08 16:30 | CM ---
CM following for DC planning needs.
Pt. resides w/ spouse in a private, 2 story home w/ 2 SYBIL. Functionally, patient is indep. w/ ADLs, mobility without the use of any assisted device.
Pt. had recent hospitalization, DC to home, 04/09.
CM had met w/ patient during this hospitalization to review pre and post op routines.
Soap, shower instructions and Cardiac Surgery booklet provided.
Reviewed post op restrictions to include lifting, driving, flying and sternal precautions.
Post op MD appointments, Cardiac Rehab and visit from CT Transitional Care RN reviewed.
Plan is for CT Surgery, Thursday 04/12.
Anticipated DC plan is for home w/ CT Transitional Care RN.
CM to follow.
[2024-04-08 17:40] LABS: INR 1.07; PT 13.9 Sec (11.4-14.6)
[2024-04-12] VITALS (19 sets, daily range): BP systolic 86–174; BP diastolic 60–91; BMI 30.6
--- NOTE | 2024-04-12 05:41 | W.CVOR.SURPR ---
CVOR Surgeon Immed Pre Op
-
I have examined this patient prior to performance of the scheduled procedure.
The patient's condition is unchanged from the time of the dictated/written History and
Physical and the patient is able to undergo the scheduled procedure.
MIDCAB
[2024-04-12] MEDS: PROTONIX 40 MG PO (06:03)
[2024-04-12] MEDS: LOPRESSOR 25 MG PO (06:03)
[2024-04-12] MEDS: MAGNESIUM OXIDE 500 MG PO (06:03)
[2024-04-12] MEDS: BACTROBAN 2% OINTMENT 1 APPLIC NASAL ×2 (06:07→19:12)
[2024-04-12 08:00] LABS: Urine Albumin Trace (Neg - Trace); Urine Bilirubin Negative (Negative); Urine Character Clear (Clear); Urine Color Yellow; Urine Glucose Negative (Negative); Urine Ketone Negative (Negative); Urine Leukocyte Negative (Negative); Urine Nitrite Negative (Negative); Urine Occult Blood Negative (Negative); Urine Urobilinogen Negative (Neg - 1+); Urine pH 6.5 (5.0-9.0)
[2024-04-12 08:17] LABS: ACT+ - POC 85 Seconds (82-134)
--- NOTE | 2024-04-12 09:28 | CM ---
pt in OR today, cm to follow
[2024-04-12 10:11] LABS: B.E. - POC 1.3 mmol/L; Glucose - POC 134 mg/dl (70-99); HCO3 - POC 25 mmol/L (21-29); Hematocrit - POC 33 % PCV (42-52); Hemodilution- POC No; Hemoglobin Calculated - POC 11.1; Ionized Calcium - POC 1.21 mmol/L (1.12-1.27); O2 Saturation %Calculated-POC 99.9 5 (92-96); PCO2 - POC 35 mmHg (35-45); PO2 - POC 312 mmHg (80-100); POC Comment PRE; Potassium - POC 3.3 mmol/L (3.6-5.0); Sodium - POC 138 mmol/L (135-145); pH - POC 7.46 (7.35-7.45)
[2024-04-12 10:18] LABS: ACT+ - POC 605 Seconds (82-134)
[2024-04-12 11:18] LABS: B.E. - POC 0.1 mmol/L; Glucose - POC 180 mg/dl (70-99); HCO3 - POC 27 mmol/L (21-29); Hematocrit - POC 30 % PCV (42-52); Hemodilution- POC No; Hemoglobin Calculated - POC 10.4; Ionized Calcium - POC 1.22 mmol/L (1.12-1.27); O2 Saturation %Calculated-POC 99.2 % (92-96); PCO2 - POC 52 mmHg (35-45); PO2 - POC 155 mmHg (80-100); POC Comment OFF PUMP; Potassium - POC 3.6 mmol/L (3.6-5.0); Sodium - POC 136 mmol/L (135-145); pH - POC 7.32 (7.35-7.45)
[2024-04-12 11:21] LABS: ACT+ - POC 107 Seconds (82-134)
[2024-04-12 11:23] LABS: B.E. - POC 0.9 mmol/L; Glucose - POC 175 mg/dl (70-99); HCO3 - POC 26 mmol/L (21-29); Hematocrit - POC 29 % PCV (42-52); Hemodilution- POC No; Hemoglobin Calculated - POC 9.8; O2 Saturation %Calculated-POC 99.9 % (92-96); PCO2 - POC 40 mmHg (35-45); PO2 - POC 289 mmHg (80-100); POC Comment POST; Potassium - POC 3.2 mmol/L (3.6-5.0); Sodium - POC 137 mmol/L (135-145); pH - POC 7.41 (7.35-7.45)
--- NOTE | 2024-04-12 11:46 | W.PN.CT.SURG ---
CT Surgery Operative Note
-
CARDIAC SURGERY OPERATIVE REPORT
Preoperative Diagnosis: Coronary Artery Disease with proximal LAD involvement and abnormal stress test
Postoperative Diagnosis: Same
Procedure(s) Performed:
1. Robotic assisted MIDCAB (single-vessel bypass SMITH in situ to LAD)
2. Robotic assisted harvest of internal mammary artery with anterolateral mini thoracotomy for CABG
3. Transesophageal echocardiography
4. Transonic Flowprobe assessment of SMITH graft
5. Rib plating (4 screw straight gold plate with slight curve and 4 x 12 mm screws)
Date of Surgery: 04/12/2024
Comorbidities:
1. Coronary artery disease involving the ostial LAD
2. Abnormal stress test with marked EKG changes, with concomitant drop in left ventricular ejection fraction with exercise
3. Stable angina, exertional
4. CAD
5. History of COVID
6. GERD
7. Hypertension
8. Hyperlipidemia
9. JOHN
10. Morbidly obese with BMI of 30.6
Attending Surgeon: Chava Mcintyre MD, MS
Assistants: Chava Johansen PA-C (present and necessary to first aid trainer, exchanging robotic instruments, retraction, suction, exposure, suture management, and wound closure under my direction)
Anesthesiology: Buzz Quiles MD and Linda Yang CRNA
Scrub and Circulating RNs: Magdy Boggs RN, Zohreh Murillo RN
Day Guard: Chet Black CCP
Anesthesia: GETA
EBL: per perfusion records
Products: None
Indication(s) for Procedures: This is a 79-year-old male with exertional angina. He underwent a stress test which demonstrated marked changes in his EKG as well as concomitant drop in his left ventricular ejection fraction from 65 to 40% and
substernal chest pain with shortness of breath during exertion. He underwent left heart cath which found a significant ostial LAD lesion. Multidisciplinary discussion with interventional cardiology deemed that stenting of this ostial lesion could
possibly compromise the large circumflex system. The STS risk was discussed with the patient in the office and the shared decision making was to pursue a single-vessel bypass using his mammary artery to his LAD via a mini invasive approach.
Conduit(s) Quality/Internal Diameter:
SMITH -good quality size, flow probe analysis, mean of 60 cc/min, PI of 2.7
Target(s) Quality/Internal Diameter:
LAD -good quality size, accommodated a 2.0 mm shunt
Findings: His left ventricular ejection fraction preoperatively was essentially normal at 60% with no significant regional wall motion abnormalities after surgery his EF remained the same. There were no new regional wall motion abnormalities at the
inclusion of the case. The SMITH was harvested in a skeletonized fashion. The mammary graft was verified with Doppler probe to have excellent signals. Flow probe assessment demonstrated a mean flow of 60 cc/min with a pulsatility index of less than
3. Of note, he had a very small anterior diameter from chest wall to heart, aorta to accommodate visualization, I shingled the fourth rib and then plated it back together.
Description of Procedure: The patient was taken to the operating room. Their identity and procedure to be performed were verified and they were positioned supine on the operating table. Induction via general anesthesia with endotracheal intubation
was performed and central venous access and arterial monitoring were inserted. A preoperative transesophageal echocardiogram was performed to assess cardiac function and valvular function. The patient was then prepped and draped from chin to feet in
a sterile fashion and positioned with left side bumped up and left arm down. A preoperative time-out was performed with all members of the team present. A Veress needle was used to enter the chest after stopping ventilation with the left lung
verified by anesthesia. We started with slow pressure insufflation which they tolerated. An 8 mm port was inserted in the fourth intercostal space laterally and a camera was inserted verifying no intrathoracic iatrogenic injuries. 2 additional
ports(8 mm and 8mm) were placed along the midaxillary line on either side of the camera port. Single 12 mm air seal port was used for the occupational therapist assistant to pass instruments and sutures. The robotic platform was then docked and targeted towards the
mammary. The mammary was harvested in a skeletonized fashion. A posterior pericardiotomy was created to facilitate drainage. Once sufficient length was obtained, an anterior pericardiotomy was created to identify the distal target. This was marked
with a marker robotically. The cardiac stabilizer arm was then inserted through the thoracotomy incision and clamped to the rib retractor. Full heparinization was given (a total of 35,000 units). 3 Hem-o-marco a clips were used to occlude and divide
the mammary distally at its bifurcation, and a single 5-0 Prolene suture was used to secure the mammary to the pericardium overlying the LAD target. The robot platform was then undocked and the patient and a left anterior thoracotomy was created
over the target vessel. For better visualization, I shingled the 4th rib toward the head after ligating the intercostal bundle. Upon entering the thoracic cavity the mammary and LAD were visible. A soft tissue and thoracotomy retractor was placed to
facilitate exposure and a pericardial well was created. The ACT was confirmed to be over 400.
The cardiac suction stabilizer was used to isolate the LAD target. The distal end of the mammary was prepped and beveled to size. We verified orientation and length of the SERVANDO and found brisk flow. A coronary arteriotomy was created and enlarged
with coronary Perez scissors. A 2mm shunt was inserted to facilitate exposure and continued [place] coronary perfusion. An end-to-side anastomosis was created with a 7-0 Prolene and secured with a micro core knot. The bulldog on the mammary was
removed which demonstrated excellent graft flow. The shunt was then remove and demonstrated excellent [place] flow. Appropriate hemostasis was confirmed. The mammary graft was inspected and was free from kinking or twisting and flowprobe evaluation
demonstrated good flow and PI. A test dose of protamine was administered and the patient was monitored for any adverse reaction before resuming protamine. A 19F Dane drain into the pericardium and through the posterior pericardiotomy into the left
chest. The 4th rib was then plated with a 4-hole plate with 12mm screws. Fascia was approximated with #1 vicryl suture. Local analgesia was administered to the surgical sites. The subcutaneous, dermis and epidermis were closed in layers in a
running fashion. The skin wound was cleansed and dressed.
All instrument, sponge, and needle counts were confirmed to be correct x 2 at the end of the operation. The patient was transferred to the cardiac intensive care unit extubated in critical but stable condition.
I, Dr. Chava Mcintyre, was present, scrubbed for, and performed all critical elements of this procedure.
Chava Mcintyre MD, MS
Cardiothoracic Surgeon
[facility]
This operative dictation was created using the [employer] dictation system. Please excuse any grammatical, typographical, or 'sound alike' errors
--- NOTE | 2024-04-12 12:00 | PTCARENOTE ---
Patient received from CVOR at 1200. Intubated and sedated, Sinus opal with 1st degree AV block on the monitor, heart sounds regular, distant. RIJ Cordis with slic, L radial art line, and 18 g PIV x 1 in L hand; all lines leveled and zeroed; ETT 8
@ 24 the R lip, on ventilator, SIMV 40/5/14/500, lungs diminished throughout, SpO2 97-99%; CT x 1 L mediastinal present, no air leak or crepitus noted; BS hypoactive, abdomen SNT; Santiago catheter present draining clear, yellow urine; palpable pulses
throughout, no edema noted. L chest wall transverse incision with dermabond CDI, L upper CW incision CDI, chest tube dressing CDI, skin pale, cool. Patient temperature initially low, Paola hugger applied. See nursing documentation for further
details.
[2024-04-12 12:08] LABS: Glucose - Point of Care 165 mg/dl (70-99)
[2024-04-12] MEDS: NSS 500 IV (12:15)
[2024-04-12 12:16] LABS: B.E. 1.3 mmol/L; HCO3 26.6 mmol/L (21-28); Ionized Calcium 1.19 mMOL/L (1.15-1.33); O2 Saturation % 99.2 % (94-98); PCO2 44 mmHg (35-48); PO2 140 mmHg (83-108); Potassium 3.5 mMOL/L (3.5-5.1); Sodium 135 mMOL/L (136-145); pH 7.39 (7.35-7.45)
[2024-04-12 12:21] LABS: Hematocrit 30.7 % (39.0-52.0); Hemoglobin 11.1 g/dL (13.0-18.0); Platelet Count 158 10^3/uL (130-400)
[2024-04-12 12:25] LABS: APTT 27.7 Sec (23.4-35.0); INR 1.34; PT 16.4 Sec (11.4-14.6)
[2024-04-12] MEDS: DILAUDID 0.5 MG IV (12:28)
[2024-04-12 12:32] LABS: Blood Urea Nitrogen 28 mg/dl (9-20); Estimated Creatinine Clearance 88 ml/min; Glucose 156 mg/dl (70-99); Magnesium 2.7 mg/dl (1.6-2.3)
[2024-04-12] MEDS: KCL 50 IV ×2 (12:40→17:07)
[2024-04-12] MEDS: ANCEF 10 IV ×2 (12:53→12:54)
[2024-04-12] MEDS: NEURONTIN PO ×2 (12:54→16:38)
[2024-04-12 12:58] LABS: Glucose - Point of Care 161 mg/dl (70-99)
[2024-04-12] MEDS: OFIRMEV 100 IV (13:10)
[2024-04-12] MEDS: TORADOL 15 MG IV ×2 (13:43→22:04)
--- NOTE | 2024-04-12 14:00 | CON.INTV ---
Consultation
Consultation Request
Date/Time Consultation Requested: 04/12/2024
Date/Time Consultation Performed: 04/12/2024
Requesting Provider: Dr. Mcintyre
Performing Provider: Dr. Tien Martin
Reason for Consultation: Postoperative ICU care status post coronary artery bypass
Medical History
-
History of Present Illness:
79-year-old male with history of hypertension, hyperlipidemia, obstructive sleep apnea, admitted after undergoing stress echocardiogram for chest discomfort and it was markedly abnormal. Left heart catheterization showed significant multivessel
coronary artery disease.
Past Medical History
Past Medical History: Other (See assessment and plan)
Social History
Tobacco: Non-smoker
Alcohol: Daily (Wine)
Drug: None
Personal:
Living: With Family
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
Family History
Family History: Reviewed & Not Pertinent
Allergies / Home Medications
Allergies
Allergy/AdvReac Type Severity Reaction Status Date / Time
No Known Drug Allergies Allergy NKDA Verified 06/22/17 22:08
Enviornmental Allergy Runny Uncoded 06/22/17 22:08
nose,
sneezing,
cough,
itchy eyes
Home Medications
�Medication �Instructions �Recorded �Confirmed �Last Taken �Type
aspirin 81 mg tablet,delayed 81 mg PO DAILY 06/24/14 04/07/24 04/11/24 History
release
folic acid 400 mcg tablet 0.4 mg PO DAILY ##0 06/29/14 04/07/24 04/07/24 History
ascorbic acid 100 mg-zinc sulfate 1 tab PO HS 04/07/24 04/07/24 04/06/24 History
200 mg tablet
azelastine 137 mcg (0.1 %) nasal 1 spray intranasal BIDPRN PRN 04/07/24 04/07/24 04/07/24 History
spray allergies
benzonatate 200 mg capsule 200 mg PO TID 04/07/24 04/07/24 04/10/24 History
cholecalciferol (vitamin D3) 25 25 mcg PO HS 04/07/24 04/07/24 04/06/24 History
mcg (1,000 unit) tablet (Vitamin
D3)
ezetimibe 10 mg tablet (Zetia) 10 mg PO HS 04/07/24 04/07/24 04/10/24 History
finasteride 5 mg tablet 5 mg PO DAILY 04/07/24 04/07/24 04/07/24 History
fluticasone propionate 50 2 spray intranasal DAILY 04/07/24 04/07/24 04/07/24 History
mcg/actuation nasal
spray,suspension
loratadine 10 mg tablet (Claritin) 10 mg PO DAILY 04/07/24 04/07/24 04/10/24 History
zolpidem 5 mg tablet (Ambien) 5 mg PO HSPRN PRN sleep 04/07/24 04/07/24 04/06/24 History
carvedilol 6.25 mg tablet 6.25 mg PO BID #60 tabs 04/09/24 04/09/24 Rx
hydralazine 10 mg tablet 10 mg PO BID #60 tabs 04/09/24 04/11/24 Rx
hydrochlorothiazide 25 mg tablet 25 mg PO DAILY #30 tabs 04/09/24 04/11/24 Rx
nitroglycerin 0.4 mg sublingual 0.4 mg sublingual [id number] PRN 04/09/24 Unknown Rx
tablet chest pain #25 tabs
rosuvastatin 40 mg tablet 40 mg PO QPM #30 tabs 04/09/24 04/11/24 Rx
Review of Systems
-
Unable to Obtain full review of systems at this time due to: Patient Intubation
Vitals / Labs / Diagnostic Testing
Vital Signs
Temp Pulse Resp BP Pulse Ox
94.4 F L 64 14 110/66 98
04/12/24 13:00 04/12/24 13:15 04/12/24 13:15 04/12/24 13:00 04/12/24 13:15
Lab Data
04/12/24 12:07
Laboratory Results
04/12/24
12:07
PT 16.4 H
INR 1.34
APTT 27.7
pH 7.39
pCO2 44
pO2 140 H
HCO3 26.6
O2 Delivery Level
Diagnostic Testing:
Physical Exam
-
HEENT: Normocephalic
Cardiovascular: S1/S2
Respiratory: Clear and Non-Labored Respirations
GI: Soft and Non Distended
Neurology: Other (Intubated, mechanical ventilation. Starting to arouse.)
Skin: Warm
General: Comfortable
Assessment
-
Status post coronary artery bypass-Dr. Mcintyre 04/12/2024
Postoperative mechanical ventilation
Postoperative anemia likely due to blood
CT chest 04/08/2024: Bilateral upper lobe groundglass nodules measuring up to 1.6 cm.
Conditions present prior admission
Hypertension
Hyperlipidemia
Carotid artery stenosis-status post left carotic endarterectomy 2013
GERD
Osteoarthritis
Obesity
Chronic right hemidiaphragm elevation
Obstructive sleep apnea on CPAP/prior history of uvulopalatoplasty
Follows up with Dr. Cox last follow-up visit 09/2022-
Sleep study with AHI of 26 events per hour in 2015-severe obstructive sleep apnea
Coronary artery disease: New diagnosis-abnormal stress test. Cardiac catheterization 04/2024: Ostial 90% LAD lesion, 70% mid LAD, 30% proximal left circumflex.
History of chronic cough: Postnasal drip/possible cough variant asthma
Assessment and plan:
He is doing well postop-currently on mechanical ventilation and appears comfortable.
ABG reviewed: Adequate oxygenation and ventilation
Continue SIMV mode with no change
Spontaneous breathing trial per protocol once sedation wears off. Opening eyes, following commands.
Spontaneous breathing trial. Hopefully extubate soon
Anemia noted-no evidence of acute bleeding
Follow H&H serially
Hemodynamics -acceptable not requiring vasopressors
Santiago urinary output renal function
Chest tube with no excessive drainage-no air leak.
Chest x-ray reviewed: With no pneumothorax or fluid collections. Left perihilar infiltrate likely atelectasis. Prior granuloma noted
Remain nothing by mouth
Head of the bed elevation
Glycemic control per protocol
Restart CPAP after extubation
Incidental groundglass lung nodules on CAT scan 04/08/2024: Will need outpatient follow-up. He was seen by Dr. Cox on 09/2022 for obstructive sleep apnea chronic cough. CAT scan of the chest will be needed in about 3 to 4 months.
DVT prophylaxis when safe from the surgical perspective.
Critical care statement: A total of 32 minutes of critical care time was provided for this patient today. This includes management of unstable vital signs, evaluation of the patient at bedside, reviewing the patient's pertinent medical records
including ventilator settings, arterial blood gases, radiographs, microbiology, laboratory evaluations and discussion with primary team, critical care nursing, and respiratory therapy.

Data reviewed:
Cardiac catheterization, 04/07/2024:
CONCLUSIONS
1. Left dominant circulation with a 30% lesion in the proximal circumflex, a 70% lesion in the mid LAD and a densely calcified, 90%, true ostial lesion in the ostium/proximal LAD.
2. Normal filling pressures (LVEDP = 14 mmHg at 105.7 kg).
Stress Echocardiogram, 04/07/2024:
CONCLUSIONS
Abnormal stress echocardiogram.
EKG changes to 3 mm in 2, 3, aVF, V5, V6 and in aVR elevation seen with
exercise.
Mild chest pain peak immediately upon completing exercise.
LAD and left circumflex wall motion abnormalities with stress.
EF drops from 65 to 70% to 40% with exercise. LV dilated with exercise.
Overall, this is a high risk test result. Patient sent to the emergency room
upon completion of testing.
[2024-04-12 14:08] LABS: Glucose - Point of Care 141 mg/dl (70-99)
--- NOTE | 2024-04-12 14:17 | W.PN.CD ---
Today's Communication / Plan
-
- in sinus
- off pressors
-- wean from vent as per protocol
Impression / Plan
-
79 y/o male with recetnly diagnosed obstructive CAD disease who underwent CABG 04/12/24., carotid artery disease( LCEA, right carotid stenosis) , HTN, HLD, JOHN and HLD
S/p CABG by Dr Mcintyre 04/12/24
Procedure(s) Performed:
1. Robotic assisted MIDCAB (single-vessel bypass SMITH in situ to LAD)
2. Robotic assisted harvest of internal mammary artery with anterolateral mini thoracotomy for CABG
3. Transesophageal echocardiography
4. Transonic Flowprobe assessment of SMITH graft
5. Rib plating (4 screw straight gold plate with slight curve and 4 x 12 mm screws)
- in sinus
- off pressors
-- wean from vent as per protocol
Post ope anemia- monitor
hyperlipiedemia - statin
left carotid endarterectomy. history of right carotid stenosis
Physical Exam
Vital Signs/Labs
Vital Signs
Temp Pulse Resp BP Pulse Ox
96 F L 69 15 94/60 99
04/12/24 14:00 04/12/24 14:05 04/12/24 14:05 04/12/24 14:00 04/12/24 14:10
04/11/24 04/12/24 04/13/24
06:59 06:59 06:59
Actual Weight 105.2 kg
04/12/24 12:07
PT 16.4 Sec (11.4-14.6) H 04/12/24 12:07
INR 1.34 04/12/24 12:07
APTT 27.7 Sec (23.4-35.0) 04/12/24 12:07
Magnesium 2.7 mg/dl (1.6-2.3) H 04/12/24 12:07
Physical Exam
Constitutional: Other (vented . arousable)
EENT: Anicteric
Cardiovascular: Rhythm & rate is regular and Other (incisionunder left breast CDI)
Respiratory: Wheeze Absent and Rhonchi Absent
GI: Soft, Non tender and Normal bowel sounds
Neuro/Psych: Alert and Oriented
Other: Skin
Data Reviewed
-
Date of Service: April 12, 2024
Medical Decision Making: Reviewed Test Results
EKG: Report Reviewed by me
Echo: Report Reviewed by me
Labs: Labs Reviewed by me
[2024-04-12 14:49] LABS: B.E. 3.5 mmol/L; HCO3 26.3 mmol/L (21-28); Ionized Calcium 1.15 mMOL/L (1.15-1.33); O2 Saturation % 99.3 % (94-98); PCO2 33 mmHg (35-48); PO2 137 mmHg (83-108); Potassium 3.9 mMOL/L (3.5-5.1); Sodium 133 mMOL/L (136-145); pH 7.51 (7.35-7.45)
[2024-04-12] MEDS: TYLENOL PO (14:54)
--- NOTE | 2024-04-12 15:02 | PTCARENOTE ---
+1 air leak noted in CTx1 - FIELD MARKETING SPECIALIST verbally notified.
[2024-04-12 15:06] LABS: Glucose - Point of Care 111 mg/dl (70-99)
--- NOTE | 2024-04-12 15:12 | RESPNOTE ---
15:10 extubated patient to 6 liter nasal cannula 98%
[2024-04-12] MEDS: DILAUDID 0.25 MG IV ×2 (15:32→19:08)
--- NOTE | 2024-04-12 15:46 | PTCARENOTE ---
Assessment unchanged, patient extubated without incident. Is encouraged, pain medication administered, see MAR. Insulin infusing per glycemic protocol. Patient bathed with CHG wipes, new gown, new linens, no dumping from CT during turns. Patient's
at bedside.
[2024-04-12 15:59] LABS: Glucose - Point of Care 108 mg/dl (70-99)
[2024-04-12] MEDS: CALCIUM CHLORIDE 10% SYRINGE 50 ML IV (16:06)
[2024-04-12] MEDS: CALCIUM CHLORIDE 10% SYRINGE 50 MG IV (16:06)
[2024-04-12 16:29] LABS: B.E. 1.6 mmol/L; HCO3 27.2 mmol/L (21-28); O2 Saturation % 99.6 % (94-98); PCO2 46 mmHg (35-48); PO2 124 mmHg (83-108); Potassium 3.8 mMOL/L (3.5-5.1); Sodium 136 mMOL/L (136-145); pH 7.38 (7.35-7.45)
[2024-04-12 16:30] LABS: Hematocrit 31.5 % (39.0-52.0); Hemoglobin 11.4 g/dL (13.0-18.0); Platelet Count 139 10^3/uL (130-400)
[2024-04-12] MEDS: PACERONE PO (16:39)
[2024-04-12] MEDS: ROXICODONE 5 MG PO ×2 (17:05→21:15)
[2024-04-12] MEDS: FLEXERIL 5 MG PO (17:05)
[2024-04-12] MEDS: LOW STRENGTH ASPIRIN 81 MG PO (17:06)
--- NOTE | 2024-04-12 17:43 | PTCARENOTE ---
Patient's CVP 1-3 on monitor, LEATHER PRODUCTION MACHINE OPERATOR notified, urine output adequate, assessment of needs ongoing.
[2024-04-12 18:01] LABS: Glucose - Point of Care 83 mg/dl (70-99)
[2024-04-12] MEDS: CRESTOR PO (18:08)
--- NOTE | 2024-04-12 19:00 | PTCARENOTE ---
Assessment unchanged, patient c/o continued pain, PRN medication given, see MAR. Nitro continued. Patient sleeping between care, resting in bed, call jc within reach.
[2024-04-12] MEDS: ANCEF 5 IV (19:07)
[2024-04-12] MEDS: SENOKOT-S 1 TABLET PO (19:37)
[2024-04-12] MEDS: MUCINEX 600 MG PO (19:37)
[2024-04-12 19:59] LABS: Glucose - Point of Care 122 mg/dl (70-99)
[2024-04-12] MEDS: TYLENOL 1000 MG PO (21:12)
[2024-04-12] MEDS: PACERONE 200 MG PO (21:12)
[2024-04-12] MEDS: NEURONTIN 100 MG PO (21:12)
[2024-04-12 22:04] LABS: Glucose - Point of Care 107 mg/dl (70-99)
[2024-04-12] MEDS: ZETIA 10 MG PO (22:12)
--- NOTE | 2024-04-12 22:53 | RESPNOTE ---
pt required some help putting himself on his home CPAP unit. AQdded 6 lpm O2, pt agrees it is on and is running per norm.
[2024-04-13] VITALS (26 sets, daily range): BP systolic 77–134; BP diastolic 53–97; PULSE 88; O2SAT 97; BMI 31.0
[2024-04-13] MEDS: DILAUDID 0.5 MG IV ×3 (00:05→21:36)
[2024-04-13 00:22] LABS: Glucose - Point of Care 103 mg/dl (70-99)
--- NOTE | 2024-04-13 00:50 | PTCARENOTE ---
Patient reassessed. VSS. Patient is AOx4, follows commands appropriately, moves all extremities. Lung sounds are diminished throughout, patient is on 2L via CPAP machine at this time. There is CTx1 in the L pleural/mediastinal space draining red
sanguineous. Heart sounds are audible but distant, patient is SR with first deg AV block, patient has normal palpable pulses and no observable edema. Patient has hypoactive BS present in all four quadrants, there is a Santiago catheter draining yellow
clear urine. Patient has L upper chest incision approx with surg adhesive APRICOT WASHER and L lateral chest puncturesx3 approx with surg adhesive SABINO. Patient has R IJ cordis with slic receiving KVO, L radial Ruby, and L Hand 18G PIV receiving insulin.
Patient was on nitro gtt earlier, but discontinued at this time. Pain management with dilaudid, toradol and Vashti. Patient is stable and sleeping at this time.
[2024-04-13 02:11] LABS: Glucose - Point of Care 94 mg/dl (70-99)
--- NOTE | 2024-04-13 02:43 | W.PN.CT ---
Today's Communication / Plan
-
Plan:
-No major issues overnight. Hemodynamically and neurologically intact
-Successfully extubated on 04/12/24 @ 1500
-Off all drips but insulin per protocol
-D/C'd a-line this AM @ 0430
-Will d/c chapman @ 0600
-Will transfer to [facility] phase once off insulin gtt
-Monitor chest tube drainage: med/L pleural 85/315
-Cont. current meds (ASA, Amiodarone, BB, Zetia, Proscar; will Plavix)
-Wean off of O2 as tolerated
-Encourage use of IS
-OOB into chair/Ambulate
Assessment / Plan
-
Assessment:
-S/p Robotic assisted MIDCAB (single-vessel bypass SMITH in situ to LAD)/ Rib plating (4 screw straight gold plate with slight curve and 4 x 12 mm screws, by Dr. Mcintyre, 04/12/24, pod#1
-Coronary artery disease involving the ostial LAD
-Abnormal stress test with marked EKG changes, with concomitant drop in left ventricular ejection fraction with exercise
-LVEF postop 60-65% per intraop LUCAS
-Stable angina, exertional
-CAD
-History of COVID
-GERD
-Hypertension
-Hyperlipidemia
-BPH, on Proscar @ home
-Postnasal drip with chronic cough
-JOHN
-Class 1 obesity (BMI 30.6)
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 Metz, 2013
-Acute postop blood loss/Anemia (stable without transfusion)
-Acute postop atelectasis
-Acute postop hypovolemia with subsequent hypervolemia
Discussed patient care with: Cardiology, Nursing, Respiratory Therapy, Pharmacy and Care Team
Subjective
Procedure
S/p Robotic assisted MIDCAB (single-vessel bypass SMITH in situ to LAD)/ Rib plating (4 screw straight gold plate with slight curve and 4 x 12 mm screws, by Dr. Mcintyre, 04/12/24
-
Date of Service: April 13, 2024
Pt c/o mild incisional pain, otherwise feels well
Objective Data
-
PT 16.4 Sec (11.4-14.6) H 04/12/24 12:07
INR 1.34 04/12/24 12:07
APTT 27.7 Sec (23.4-35.0) 04/12/24 12:07
Vital Signs
Vital Signs
Temp Pulse Resp BP Pulse Ox
97.8 F 91 16 132/76 94
04/13/24 02:00 04/13/24 01:00 04/13/24 02:00 04/13/24 01:00 04/13/24 02:00
CT Intake/Output/Weight
04/12/24 04/12/24 04/13/24
06:59 18:59 06:59
Intake Total 515.4 / 787.6 272.2 / 787.6
Output Total 605 / 902 297 / 902
Balance -89.6 / -114.4 -24.8 / -114.4
SaO2: 94 (2L)
Physical Exam
-
General: Awake, Oriented and AOx3
Cardiovascular: Regular rate & rhythm, No Murmurs, No Rub and No Gallop
Respiratory: Decreased Breath Sounds
Incision: Clean, Dry, Intact and Dressing Intact
Extremities: No Edema
Data Reviewed
-
Lab Results: Results Reviewed
Medications: Active Meds Reviewed
Chest X-Ray: Report Reviewed and Image Reviewed
[2024-04-13] MEDS: ROXICODONE 5 MG PO ×4 (02:53→17:46)
[2024-04-13] MEDS: FLEXERIL 5 MG PO ×3 (02:53→21:36)
[2024-04-13] MEDS: ANCEF 5 IV ×2 (02:55→12:28)
[2024-04-13 03:43] LABS: Hematocrit 32.8 % (39.0-52.0); Hemoglobin 11.9 g/dL (13.0-18.0); Mean Corp Hgb Conc. 36.3 g/dL (33.0-37.0); Mean Corpuscular Hgb 31.6 pg (27.0-31.0); Mean Platelet Volume 10.3 fL (7.4-10.4); Platelet Count 140 10^3/uL (130-400); Red Blood Cell Count 3.77 10^6/uL (4.70-6.10); Red Cell Dist. Width 12.2 % (11.5-14.5); White Blood Cell Count 11.1 10^3/uL (4.8-10.8)
[2024-04-13 03:48] LABS: Blood Urea Nitrogen 31 mg/dl (9-20); Calcium 9.4 mg/dl (8.4-10.2); Carbon Dioxide 22 mmol/L (22-30); Chloride 104 mmol/L (98-107); Estimated Creatinine Clearance 79 ml/min; Glucose 109 mg/dl (70-99); Magnesium 2.1 mg/dl (1.6-2.3); Potassium 4.3 mmol/L (3.5-5.1); Sodium 139 mmol/L (135-145); eGFR > 60.00
[2024-04-13 04:11] LABS: Glucose - Point of Care 102 mg/dl (70-99)
[2024-04-13 04:37] LABS: Hepatitis C Antibody Negative (Negative)
[2024-04-13] MEDS: TYLENOL 1000 MG PO ×3 (05:02→21:26)
[2024-04-13] MEDS: TORADOL 15 MG IV ×2 (06:17→17:49)
[2024-04-13 06:25] LABS: Glucose - Point of Care 118 mg/dl (70-99)
--- NOTE | 2024-04-13 07:18 | W.PN.CD ---
Today's Communication / Plan
-
Encourage incentive spirometry.
Ambulate as tolerated.
Restart rosuvastatin 40 mg daily.
Pain/chest tube management per CT surgery.
Impression / Plan
-
Impression/Plan: 79 y/o male with CHATO, HTN, HLD, JOHN and a 90% true ostial LAD coronary artery disease admitted for elective MIDCAB.
#CAD
-Relatively new diagnosis after classic symptoms and a markedly positive stress echocardiogram.
-S/P MIDCAB (robotic SMITH to LAD) via thoracotomy with rib plating closure with Dr. Mcintyre, 04/12/2024.
-Routine postoperative management.
-Chest tube/pain management per CT surgery.
-Continue aspirin, amiodarone, metoprolol.
-Restart rosuvastatin 40mg daily when he is able.
-Encourage incentive spirometry/ambulation.
#CHATO
-Chronic.
-S/P prior CEA
-Continue aspirin.
-Restart rosuvastatin 40 mg daily.
#HTN
-Chronic.
-Adjust medications as he recovers from surgery.
#HLD
-Chronic.
-Continue ezetimibe 10 mg daily.
-Restart rosuvastatin 40 mg daily.
-Goal LDL < 55.
#JOHN
Subjective/Interval History:
MIDCAB yesterday.
Extubated yesterday at 15:10.
1+ air leak in chest tube.
Weight is up 1.5 kg.
SaO2 = 99% on 2LNC.
DATA:
Cardiac catheterization, 04/07/2024:
CONCLUSIONS
1. Left dominant circulation with a 30% lesion in the proximal circumflex, a 70% lesion in the mid LAD and a densely calcified, 90%, true ostial lesion in the ostium/proximal LAD.
2. Normal filling pressures (LVEDP = 14 mmHg at 105.7 kg).
TTE, 04/08/2024:
CONCLUSIONS
Normal left ventricular size with moderate concentric hypertrophy and normal
systolic function. Normal regional wall motion. LV ejection fraction is 55-60%
by Carson's method of discs. Stage I diastolic dysfunction suggestive of
abnormal relaxation.
Top normal right ventricular size and systolic function.
Mild left atrial dilation.
No significant valve abnormaliteis.
No evidence of pulmonary hypertension.
No significant change since the prior study of 06/23/2017.
Intraoperative LUCAS, 04/12/2024:
CONCLUSIONS
Normal biventricular systolic function with LVEF 65% by visual inspection.
Concentric hypertrophy (1.4 cm) of the left ventricle is noted.
The cardiac valves are grossly normal.
The thoracic aorta has grade III disease burden in the ascending and descending
portions. The arch was poorly visualized.
POST OPERATIVE FINDINGS
S/P MIDCAB SMITH to LAD.
Grossly unchanged exam.
Physical Exam
Vital Signs/Labs
Vital Signs
Temp Pulse Resp BP Pulse Ox
36.7 C 88 12 134/75 99
04/13/24 05:00 04/13/24 03:30 04/13/24 05:00 04/13/24 03:00 04/13/24 05:00
04/11/24 04/12/24 04/13/24
11:59 11:59 11:59
Actual Weight 105.2 kg
04/13/24 03:16
04/13/24 03:16
PT 16.4 Sec (11.4-14.6) H 04/12/24 12:07
INR 1.34 04/12/24 12:07
APTT 27.7 Sec (23.4-35.0) 04/12/24 12:07
Magnesium 2.1 mg/dl (1.6-2.3) 04/13/24 03:16
Physical Exam
Constitutional: No acute distress and Comfortable
EENT: Anicteric and Moist mucous membranes
Cardiovascular: Rhythm & rate is regular, Pedal edema is absent, JVD pressure is normal and S1S2 is normal
Respiratory: Respiratory effort normal, Lungs clear to auscul., Wheeze Absent, Crackles Absent and Rhonchi Absent
GI: Soft, Distention absent, Flat, Non tender and Normal bowel sounds
Neuro/Psych: AO x 3
Data Reviewed
-
Date of Service: April 13, 2024
Medical Decision Making: Reviewed Test Results and Independent Historian Assessment
EKG: Tracing Personally Visualized and interpreted and Report Reviewed by me
Echo: Report Reviewed by me
X-Ray/CT/US/MRI/NUC/PET: Image Personally Visualized and interpreted and Report Reviewed by me
Medical Tests (PFT, Pathology etc): Image Personally Visualized and interpreted and Report Reviewed by me
Labs: Labs Reviewed by me
Old Records: Reviewed
--- NOTE | 2024-04-13 07:35 | PTCARENOTE ---
Patient reassessed. VSS. AM labs obtained. AM hygiene care provided. Patient delined. Santiago removed at 0630 dtv 1230. Assisted patient oob to chair without incident. Patient remains in SR on the monitor with first deg av block.
[2024-04-13 08:07] LABS: Glucose - Point of Care 115 mg/dl (70-99)
[2024-04-13] MEDS: PLAVIX 75 MG PO (08:10)
[2024-04-13] MEDS: PACERONE 200 MG PO ×4 (08:11→21:26)
[2024-04-13] MEDS: LOW STRENGTH ASPIRIN 81 MG PO (08:11)
[2024-04-13] MEDS: PROSCAR 5 MG PO (08:11)
[2024-04-13] MEDS: MAGNESIUM OXIDE 500 MG PO ×2 (08:11→19:28)
[2024-04-13] MEDS: NEURONTIN 100 MG PO ×3 (08:11→21:26)
[2024-04-13] MEDS: MUCINEX 600 MG PO ×2 (08:12→19:28)
[2024-04-13] MEDS: SENOKOT-S 1 TABLET PO ×2 (08:12→19:28)
[2024-04-13] MEDS: PROTONIX 40 MG PO (08:12)
[2024-04-13] MEDS: LIDOCAINE 4% PATCH 1 PATCH TOPICAL (08:12)
[2024-04-13] MEDS: CLARITIN 10 MG PO (08:12)
[2024-04-13] MEDS: BACTROBAN 2% OINTMENT 1 APPLIC NASAL ×2 (08:13→19:29)
--- NOTE | 2024-04-13 08:32 | PTCARENOTE ---
Received pt from shift supervisor film processing RN; pt AAOx3 and patient resting comfortably in chair; NSR on monitor and VSS; + rub; RIJ cordis and PIV x1 patent; Insulin infusing per Glycemic protocol see how sheet for details; Lungs diminished; IS to 2000; CT x1 to
-20 wall suction no air leak and no crepitus noted; hypoactive bowel sounds; Santiago removed by shift supervisor film processing RN, pt DTV at 1230; palpable pulses throughout; no edema noted; all surgical sites C/D/I; see nursing documentation for further details.
[2024-04-13 10:15] LABS: Glucose - Point of Care 151 mg/dl (70-99)
--- NOTE | 2024-04-13 11:01 | W.PN.ANS.POP ---
Anesthesia Post Operative
- Anesthesia Post Op Note
Vital Signs Stable-See Nursing Note: Yes
Airway Patent: Yes
Adequate Pain Control: Yes
Change in Mental Status: No
Current Postoperative Nausea & Vomiting: No
Anesthesia Complications: No
General Anesthetic Recall: No
Unplanned Admission: No
Post Op Hydration Adequate: Yes
--- NOTE | 2024-04-13 11:27 | PTCARENOTE ---
Assessment unchanged; NSR on monitor and VSS: Insulin infusing see flow sheet for details; Pt ambulated hallway with cardiac rehab and resting comfortably in chair.
[2024-04-13 12:18] LABS: Glucose - Point of Care 133 mg/dl (70-99)
[2024-04-13] MEDS: NSS IV (12:28)
--- NOTE | 2024-04-13 12:30 | PTCARENOTE ---
Patient received from Yvrose RN; AAOx4, responds spontaneously to RN and follows commands; VSS; SR with PAC's and PVC's on monitor; CTx1 draining bloody drainage - no crepitus, tidaling, or air leak noted; Lungs diminished at bases; SpO2 96-98% on
RA; IS 2000 ml; Hypoactive BS and passing gas; Patient voided in bathroom with previous RN after chapman removal; All surgical sites intact; RIJ Cordis with KVO infusing; PIVx1; Insulin gtt discontinued - see nursing flowsheets for further details;
See nursing documentation for further information.
[2024-04-13] MEDS: FERRLECIT 110 MG IV (13:20)
[2024-04-13] MEDS: ATIVAN 1 MG PO (13:20)
--- NOTE | 2024-04-13 14:27 | W.PN.INTV ---
Today's Communication / Plan
Recommendations
Continue postoperative care
Follow chest tube output
Daily chest x-ray
Increase activity as tolerated
Sign off
Assessment
-
Status post coronary artery bypass-Dr. Mcintyre 04/12/2024
Extubated 04/12/2024
Postoperative mechanical ventilation
Postoperative anemia likely due to blood
CT chest 04/08/2024: Bilateral upper lobe groundglass nodules measuring up to 1.6 cm.
Conditions present prior admission
Hypertension
Hyperlipidemia
Carotid artery stenosis-status post left carotic endarterectomy 2013
GERD
Osteoarthritis
Obesity
Chronic right hemidiaphragm elevation
Obstructive sleep apnea on CPAP/prior history of uvulopalatoplasty
Follows up with Dr. Cox last follow-up visit 09/2022-
Sleep study with AHI of 26 events per hour in 2014-severe obstructive sleep apnea
Coronary artery disease: New diagnosis-abnormal stress test. Cardiac catheterization 04/2024: Ostial 90% LAD lesion, 70% mid LAD, 30% proximal left circumflex.
History of chronic cough: Postnasal drip/possible cough variant asthma
Assessment and plan:
Doing well postoperative day 1
Extubated on low rate supplemental oxygen
Clear lung exam
Encourage incentive spirometry
Increase activity per protocol
Analgesia with narcotics as needed. Watch respiratory status closely
Anemia noted-no evidence of acute bleeding
Follow H&H serially
Hemodynamics -stable hemodynamically
Santiago to be discontinued
Renal function and urinary output are adequate
Chest tube with no excessive drainage-no air leak.
Chest x-ray reviewed: No acute abnormalities. No pneumothorax. Left lower lobe abnormality likely atelectasis
Repeat chest x-ray daily
Advance diet as tolerated
Head of the bed elevation
Glycemic control per protocol
Okay to use home CPAP
Incidental groundglass lung nodules on CAT scan 04/08/2024: Will need outpatient follow-up. He was seen by Dr. Cox on 09/2022 for obstructive sleep apnea chronic cough. CAT scan of the chest will be needed in about 3 to 4 months.
DVT prophylaxis when safe from the surgical perspective.
No additional recommendations from the pulmonary perspective.
Critical care team will sign off
Please call with questions

Data reviewed:
Cardiac catheterization, 04/07/2024:
CONCLUSIONS
1. Left dominant circulation with a 30% lesion in the proximal circumflex, a 70% lesion in the mid LAD and a densely calcified, 90%, true ostial lesion in the ostium/proximal LAD.
2. Normal filling pressures (LVEDP = 14 mmHg at 105.7 kg).
Stress Echocardiogram, 04/07/2024:
CONCLUSIONS
Abnormal stress echocardiogram.
EKG changes to 3 mm in 2, 3, aVF, V5, V6 and in aVR elevation seen with
exercise.
Mild chest pain peak immediately upon completing exercise.
LAD and left circumflex wall motion abnormalities with stress.
EF drops from 65 to 70% to 40% with exercise. LV dilated with exercise.
Overall, this is a high risk test result. Patient sent to the emergency room
upon completion of testing.
Subjective Dataa
Subjective Data
Date of Service:
Date of Service: April 13, 2024
Chief Complaint: Supervisor Veneer Follow Up (s/p CAB)
Subjective:
Did well overnight.
Pain is controlled
Denies any cough or phlegm production
Review of Systems
Cardiopulmonary: Dyspnea (None at rest) and Cough (Not)
GI: Abdominal Pain (n) and Nausea (n)
Objective Data
Data Reviewed
Vital Signs / I&O / Oxygen:
Vital Signs
Temp Pulse Resp BP Pulse Ox
98.3 F 91 16 112/64 98
04/13/24 08:00 04/13/24 12:32 04/13/24 12:34 04/13/24 12:32 04/13/24 12:34
Intake and Output
04/12/24 04/13/24 04/14/24
06:59 06:59 06:59
Intake Total 852.4 / 864.7 197.95 / 197.95
Output Total 1107 / 1107 130 / 130
Balance -254.6 / -242.3 67.95 / 67.95
SaO2 [CPAP] 99
SaO2 [SIMV] 99
SaO2 98
Nasal Cannula flow liters per 2
minute
Physical Exam
General: Comfortable
HEENT: Normocephalic
Cardiovascular: S1-S2
Respiratory: Clear, Non-Labored Respirations and Chest Tube (No excessive drainage. No air leak)
GI: Soft
Neurology: Awake, Alert and Oriented
Skin: Warm
Labs/Micro/Reports
Lab Data
04/13/24 03:16
04/13/24 03:16
Laboratory Results
04/12/24 04/12/24
14:39 16:17
pH 7.51 H 7.38
pCO2 33 L 46
pO2 137 H 124 H
HCO3 26.3 27.2
O2 Delivery Level
--- NOTE | 2024-04-13 14:38 | CM ---
spoke with pt in room, dc plans remain home when medically stable and f/u visit from the ct transitional care nurse
--- NOTE | 2024-04-13 16:23 | PTCARENOTE ---
Pain improved after receiving PRN Oxycodone and Flexeril; One time order of PO Ativan ordered and given for anxiety - with good response; Patient resting comfortably in bed
[2024-04-13 17:24] LABS: Glucose - Point of Care 250 mg/dl (70-99)
[2024-04-13] MEDS: CRESTOR 40 MG PO (17:24)
[2024-04-13] MEDS: NOVOLOG FLEXPEN-MODERATE RESISTANCE 5 UNITS SC (18:11)
[2024-04-13] MEDS: CALCIUM CHLORIDE 10% SYRINGE 60 MG IV (20:32)
--- NOTE | 2024-04-13 20:40 | PTCARENOTE ---
Patient ambulated in hallways with RN - patient a little dizzy/lightheaded towards end of ambulating but safely ambulated back to chair in room; BP low but not orthostatic; PO Amiodarone ordered and given due to high HR; iCal repleted x1; Patient
voided 215 ml of alix urine; Bladder scanned due to low urine output - 210 ml PVR.
[2024-04-13 21:07] LABS: Glucose - Point of Care 159 mg/dl (70-99)
[2024-04-13] MEDS: ZETIA 10 MG PO (21:26)
[2024-04-13] MEDS: MELATONIN 5 MG PO (22:00)
--- NOTE | 2024-04-13 23:00 | PTCARENOTE ---
Assumed care of patient at 2300. VSS. Patient remains in SR with first deg AV block. Pain managed with Vashti, Dilaudid, and Toradol. Patient stable at this time.
[2024-04-14] VITALS (13 sets, daily range): BP systolic 94–143; BP diastolic 61–676; PULSE 86–87; O2SAT 98; BMI 31.7
[2024-04-14] MEDS: ROXICODONE 5 MG PO ×4 (02:42→21:22)
[2024-04-14] MEDS: TORADOL 15 MG IV ×3 (02:57→19:16)
[2024-04-14 03:24] LABS: Hematocrit 33.9 % (39.0-52.0); Mean Corp Hgb Conc. 35.4 g/dL (33.0-37.0); Mean Corpuscular Hgb 31.4 pg (27.0-31.0); Mean Corpuscular Volume 88.7 fL (80.0-94.0); Mean Platelet Volume 10.5 fL (7.4-10.4); Platelet Count 140 10^3/uL (130-400); Red Blood Cell Count 3.82 10^6/uL (4.70-6.10); Red Cell Dist. Width 12.7 % (11.5-14.5); White Blood Cell Count 9.9 10^3/uL (4.8-10.8)
[2024-04-14 03:46] LABS: Blood Urea Nitrogen 40 mg/dl (9-20); Calcium 9.4 mg/dl (8.4-10.2); Carbon Dioxide 27 mmol/L (22-30); Chloride 101 mmol/L (98-107); Estimated Creatinine Clearance 72 ml/min; Glucose 131 mg/dl (70-99); Magnesium 2.1 mg/dl (1.6-2.3); Sodium 136 mmol/L (135-145); eGFR > 60.00
--- NOTE | 2024-04-14 04:27 | W.PN.CT ---
Today's Communication / Plan
-
Plan:
-No major issues overnight. Hemodynamically and neurologically intact
-Off all drips
-BP has been soft postop, BB remains on hold. Avoid Coreg today
-Increased Amiodarone to 400 TID given postop episodes of tachycardia/ectopies
-D/C chest tube: 1med/L pleural 45/175
-No temporary PW
-Cont. current meds (ASA, Amiodarone, BB, Zetia, Proscar; will Plavix)
-Encourage use of IS
-OOB into chair/Ambulate
-Home in 1-2 days
Assessment / Plan
-
Assessment:
-S/p Robotic assisted MIDCAB (single-vessel bypass SMITH in situ to LAD)/ Rib plating (4 screw straight gold plate with slight curve and 4 x 12 mm screws, by Dr. Mcintyre, 04/12/24, pod#2
-Coronary artery disease involving the ostial LAD
-Abnormal stress test with marked EKG changes, with concomitant drop in left ventricular ejection fraction with exercise
-LVEF postop 60-65% per intraop LUCAS
-Stable angina, exertional
-CAD
-History of COVID
-GERD
-Hypertension
-Hyperlipidemia
-BPH, on Proscar @ home
-Postnasal drip with chronic cough
-JOHN
-Class 1 obesity (BMI 30.6)
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 Metz, 2013
-Acute postop blood loss/Anemia (stable without transfusion)
-Acute postop atelectasis
-Acute postop hypovolemia with subsequent hypervolemia
Discussed patient care with: Cardiology, Nursing, Respiratory Therapy, Pharmacy and Care Team
Subjective
Procedure
S/p Robotic assisted MIDCAB (single-vessel bypass SMITH in situ to LAD)/ Rib plating (4 screw straight gold plate with slight curve and 4 x 12 mm screws, by Dr. Mcintyre, 04/12/24
-
Date of Service: April 14, 2024
Pt c/o mild incisional pain, otherwise feels well
Objective Data
-
Lab Results
04/14/24 03:01
04/14/24 03:01
PT 16.4 Sec (11.4-14.6) H 04/12/24 12:07
INR 1.34 04/12/24 12:07
APTT 27.7 Sec (23.4-35.0) 04/12/24 12:07
Vital Signs
Vital Signs
Temp Pulse Resp BP Pulse Ox
98.3 F 97 20 119/78 91
04/14/24 00:07 04/14/24 03:30 04/14/24 00:07 04/14/24 03:02 04/14/24 03:02
CT Intake/Output/Weight
04/13/24 04/13/24 04/14/24
06:59 18:59 06:59
Intake Total 337.0 / 864.7 217.95 / 877.95 660 / 877.95
Output Total 502 / 1107 130 / 390 260 / 390
Balance -165.0 / -242.3 87.95 / 487.95 400 / 487.95
SaO2: 92
Physical Exam
-
General: Awake, Oriented and AOx3
Cardiovascular: Regular rate & rhythm, No Murmurs, No Rub and No Gallop
Respiratory: Decreased Breath Sounds (at bases, otherwise clear)
Sternum: Stable
Incision: Clean, Dry, Intact and Dressing Intact
Extremities: No Edema
Data Reviewed
-
Lab Results: Results Reviewed
Medications: Active Meds Reviewed
Chest X-Ray: Report Reviewed and Image Reviewed
ECG: Report Reviewed and Image Reviewed
[2024-04-14] MEDS: TYLENOL 1000 MG PO ×3 (06:43→21:21)
--- NOTE | 2024-04-14 07:11 | PTCARENOTE ---
Patient reassessed. VSS. Patient received dose of Vashti followed by toradol at approx 0300 for pain exacerbation. Assisted patient OOB to chair without incident. Remains SR with first deg AV block on the monitor.
--- NOTE | 2024-04-14 07:55 | W.PN.CD ---
Today's Communication / Plan
-
Incentive spirometry.
Ambulate.
Chest tube/Pain management per CT surgery.
Furosemide 40 mg IV x1 and monitor.
Consider high dose aspirin and colchicine for possible pericarditis.
Impression / Plan
-
Impression/Plan: 79 y/o male with CHATO, HTN, HLD, JOHN and a 90% true ostial LAD coronary artery disease admitted for elective MIDCAB.
#CAD
-Relatively new diagnosis after classic symptoms and a markedly positive stress echocardiogram.
-S/P MIDCAB (robotic SMITH to LAD) via thoracotomy with rib plating closure with Dr. Mcintyre, 04/12/2024.
-Routine postoperative management.
-EKG shows diffuse ST elevation, combined with pericardial rub - this is consistent with post operative pericarditis/pericardial irritation.
-Chest tube/pain management per CT surgery.
-Continue aspirin, amiodarone, metoprolol and rosuvastatin.
-Encourage incentive spirometry/ambulation.
-Consider colchicine 0.6 mg PO BID with high dose aspirin.
-Furosemide 40 mg IV x1 and monitor.
#CHATO
-Chronic.
-S/P prior CEA
-Continue aspirin an rosuvastatin.
#HTN
-Chronic.
-Adjust medications as he recovers from surgery.
#HLD
-Chronic.
-Continue ezetimibe 10 mg daily.
-Restart rosuvastatin 40 mg daily.
-Goal LDL < 55.
#JOHN
Subjective/Interval History:
Weight up 2.3 kg.
Transient hypotension yesterday.
Off of all pressors/inotropes.
DATA:
Cardiac catheterization, 04/07/2024:
CONCLUSIONS
1. Left dominant circulation with a 30% lesion in the proximal circumflex, a 70% lesion in the mid LAD and a densely calcified, 90%, true ostial lesion in the ostium/proximal LAD.
2. Normal filling pressures (LVEDP = 14 mmHg at 105.7 kg).
TTE, 04/08/2024:
CONCLUSIONS
Normal left ventricular size with moderate concentric hypertrophy and normal
systolic function. Normal regional wall motion. LV ejection fraction is 55-60%
by Carson's method of discs. Stage I diastolic dysfunction suggestive of
abnormal relaxation.
Top normal right ventricular size and systolic function.
Mild left atrial dilation.
No significant valve abnormaliteis.
No evidence of pulmonary hypertension.
No significant change since the prior study of 06/23/2017.
Intraoperative LUCAS, 04/12/2024:
CONCLUSIONS
Normal biventricular systolic function with LVEF 65% by visual inspection.
Concentric hypertrophy (1.4 cm) of the left ventricle is noted.
The cardiac valves are grossly normal.
The thoracic aorta has grade III disease burden in the ascending and descending
portions. The arch was poorly visualized.
POST OPERATIVE FINDINGS
S/P MIDCAB SMITH to LAD.
Grossly unchanged exam.
Physical Exam
Vital Signs/Labs
Vital Signs
Temp Pulse Resp BP Pulse Ox
36.8 C 96 19 106/65 93
04/14/24 07:37 04/14/24 07:37 04/14/24 07:37 04/14/24 07:31 04/14/24 07:37
04/12/24 04/13/24 04/14/24
11:59 11:59 11:59
Actual Weight 105.2 kg 106.7 kg 109 kg
04/14/24 03:01
04/14/24 03:01
PT 16.4 Sec (11.4-14.6) H 04/12/24 12:07
INR 1.34 04/12/24 12:07
APTT 27.7 Sec (23.4-35.0) 04/12/24 12:07
Magnesium 2.1 mg/dl (1.6-2.3) 04/14/24 03:01
Physical Exam
Constitutional: No acute distress and Comfortable
EENT: Anicteric and Moist mucous membranes
Cardiovascular: Rhythm & rate is regular, JVD pressure is normal, Pedal edema present, S1S2 is normal and Rub present
Respiratory: Respiratory effort normal and Other (Decreased in the bilateral bases.)
GI: Soft, Distention absent, Flat, Non tender and Normal bowel sounds
Neuro/Psych: AO x 3
Data Reviewed
-
Date of Service: April 14, 2024
Medical Decision Making: Reviewed Test Results, Independent Historian Assessment and Test Interpretation
EKG: Tracing Personally Visualized and interpreted and Report Reviewed by me
Echo: Tracing Personally Visualized and interpreted and Report Reviewed by me
X-Ray/CT/US/MRI/NUC/PET: Image Personally Visualized and interpreted and Report Reviewed by me
Medical Tests (PFT, Pathology etc): Image Personally Visualized and interpreted and Report Reviewed by me
Labs: Labs Reviewed by me
Old Records: Reviewed
--- NOTE | 2024-04-14 08:00 | PTCARENOTE ---
Patient received from hourly shift resting oob in chair, AAO x 3, states pain controlled at this time. NSR via cm, SaO2 @ 93% on RA. RIJ Cordis w/kvo infusing. L lateral med/pleural chest tube to -20cm suction, no air leak appreciated. All procedural
sites stable. Patient updated to plan of care for the day, in agreement. See work list for full assessment and interventions performed.
[2024-04-14 08:34] LABS: Glucose - Point of Care 164 mg/dl (70-99)
[2024-04-14] MEDS: LIDOCAINE 4% PATCH 1 PATCH TOPICAL (09:27)
[2024-04-14] MEDS: BACTROBAN 2% OINTMENT 1 APPLIC NASAL ×2 (09:27→19:16)
[2024-04-14] MEDS: MUCINEX 600 MG PO ×2 (09:28→19:16)
[2024-04-14] MEDS: CLARITIN 10 MG PO (09:28)
[2024-04-14] MEDS: PROTONIX 40 MG PO (09:28)
[2024-04-14] MEDS: MAGNESIUM OXIDE 500 MG PO ×2 (09:28→19:16)
[2024-04-14] MEDS: PACERONE 400 MG PO ×3 (09:28→21:21)
[2024-04-14] MEDS: PLAVIX 75 MG PO (09:28)
[2024-04-14] MEDS: SENOKOT-S PO ×2 (09:29→19:17)
[2024-04-14] MEDS: PROSCAR 5 MG PO (09:29)
[2024-04-14] MEDS: LOW STRENGTH ASPIRIN 81 MG PO (09:29)
[2024-04-14] MEDS: NOVOLOG FLEXPEN-MODERATE RESISTANCE 1 UNITS SC (09:29)
[2024-04-14] MEDS: NEURONTIN PO (09:35)
[2024-04-14] MEDS: FLEXERIL 5 MG PO (09:40)
[2024-04-14] MEDS: NSS 500 IV (09:45)
--- NOTE | 2024-04-14 11:52 | PTCARENOTE ---
VS obtained, assessment stable. Patient remains oob in chair, bedside.
[2024-04-14 13:04] LABS: Glucose - Point of Care 148 mg/dl (70-99)
[2024-04-14] MEDS: NOVOLOG FLEXPEN-MODERATE RESISTANCE SC ×2 (13:05→17:32)
[2024-04-14] MEDS: FERRLECIT 110 MG IV (14:04)
--- NOTE | 2024-04-14 14:26 | PTCARENOTE ---
Chest tube d/c'd as ordered, patient tolerated well. States pain improved. Resting comfortably.
--- NOTE | 2024-04-14 15:00 | CM ---
CM following for DC planning needs.
Met w/ patient at bedside. Pt. feels well. He is hopeful for DC tomorrow, 04/15.
Reviewed DC [place] for home w/ CT Transitional Care RN.
CM to cont. to follow.
[2024-04-14] MEDS: NEURONTIN 200 MG PO ×2 (16:03→21:21)
--- NOTE | 2024-04-14 16:14 | PTCARENOTE ---
VS obtained, assessment stable. Patient resting comfortably oob in chair.
[2024-04-14] MEDS: CRESTOR 40 MG PO (17:21)
[2024-04-14 17:31] LABS: Glucose - Point of Care 148 mg/dl (70-99)
--- NOTE | 2024-04-14 19:30 | PTCARENOTE ---
assumed care of pt from previous RN. pt A&Ox4, resting in chair at time of assessment. SR on tele-monitor. POX 98% on RA. abd s/n, +BS. voiding clear, yellow urine. all surgical sites stable, CDI. R IJ cordis w/ KVO. PIV intact. pt ambulated in
hallway w/ this RN. pt assisted back to bed. see worklist for complete nursing assessment.
[2024-04-14] MEDS: ZETIA 10 MG PO (21:21)
[2024-04-15] VITALS (8 sets, daily range): BP systolic 116–143; BP diastolic 68–82; PULSE 90; O2SAT 95–96; BMI 31.6
--- NOTE | 2024-04-15 | PTCARENOTE ---
assessment remains unchanged. VSS. pt using home CPAP machine. no c/o pain at this time.
[2024-04-15 00:20] LABS: Glucose - Point of Care 147 mg/dl (70-99)
--- NOTE | 2024-04-15 02:35 | W.PN.CT ---
Today's Communication / Plan
-
-No major issues overnight. �
-BP improving, consider restarting BB �
-Cont. current meds (ASA, Amiodarone, BB, Zetia, Proscar, Plavix, Crestor)�
-Lasix held due to hypotension yesterday�
-Voiding
-Encourage use of IS�
-OOB into chair/Ambulate�
-Consider high dose aspirin and colchicine for possible pericarditis per cardiology�
- 20meq of K given for 3.7
Assessment / Plan
-
Assessment:
-S/p Robotic assisted MIDCAB (single-vessel bypass SMITH in situ to LAD)/ Rib plating (4 screw straight gold plate with slight curve and 4 x 12 mm screws, by Dr. Mcintyre, 04/12/24, pod#3
-Coronary artery disease involving the ostial LAD
-Abnormal stress test with marked EKG changes, with concomitant drop in left ventricular ejection fraction with exercise
-LVEF postop 60-65% per intraop LUCAS
-Stable angina, exertional
-CAD
-History of COVID
-GERD
-Hypertension
-Hyperlipidemia
-BPH, on Proscar @ home
-Postnasal drip with chronic cough
-JOHN
-Class 1 obesity (BMI 30.6)
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 Metz, 2013
-Acute postop blood loss/Anemia (stable without transfusion)
-Acute postop atelectasis
-Acute postop hypovolemia with subsequent hypervolemia
Subjective
Procedure
S/p Robotic assisted MIDCAB (single-vessel bypass SMITH in situ to LAD)/ Rib plating (4 screw straight gold plate with slight curve and 4 x 12 mm screws, by Dr. Mcintyre, 04/12/24
-
Date of Service: April 15, 2024
Objective Data
-
PT 16.4 Sec (11.4-14.6) H 04/12/24 12:07
INR 1.34 04/12/24 12:07
APTT 27.7 Sec (23.4-35.0) 04/12/24 12:07
Vital Signs
Vital Signs
Temp Pulse Resp BP Pulse Ox
98.0 F 84 14 140/77 96
04/15/24 00:00 04/15/24 00:16 04/15/24 00:00 04/15/24 00:16 04/15/24 00:16
CT Intake/Output/Weight
04/14/24 04/14/24 04/15/24
06:59 18:59 06:59
Intake Total 690 / 907.95 860 / 920 60 / 920
Output Total 710 / 840 100 / 100
Balance -20 / 67.95 760 / 820 60 / 820
SaO2: 96
Physical Exam
-
General: Awake
Cardiovascular: Regular rate & rhythm
Respiratory: Clear
Incision: Clean, Dry and Intact
Extremities: Edema +2
--- NOTE | 2024-04-15 04:00 | PTCARENOTE ---
assessment remain unchanged. VSS. AM labs collected and sent.
[2024-04-15 04:04] LABS: Hematocrit 30.9 % (39.0-52.0); Mean Corp Hgb Conc. 35.6 g/dL (33.0-37.0); Mean Corpuscular Hgb 30.2 pg (27.0-31.0); Mean Corpuscular Volume 84.9 fL (80.0-94.0); Mean Platelet Volume 10.2 fL (7.4-10.4); Platelet Count 161 10^3/uL (130-400); Red Blood Cell Count 3.64 10^6/uL (4.70-6.10); Red Cell Dist. Width 12.7 % (11.5-14.5); White Blood Cell Count 10.3 10^3/uL (4.8-10.8)
[2024-04-15 04:25] LABS: Blood Urea Nitrogen 44 mg/dl (9-20); Calcium 8.9 mg/dl (8.4-10.2); Carbon Dioxide 26 mmol/L (22-30); Chloride 101 mmol/L (98-107); Estimated Creatinine Clearance 67 ml/min; Glucose 126 mg/dl (70-99); Magnesium 2.1 mg/dl (1.6-2.3); Potassium 3.7 mmol/L (3.5-5.1); Sodium 134 mmol/L (135-145); eGFR > 60.00
[2024-04-15] MEDS: TYLENOL 1000 MG PO (05:30)
[2024-04-15] MEDS: KCL 20 MEQ PO (05:30)
--- NOTE | 2024-04-15 07:47 | W.PN.CD ---
Today's Communication / Plan
-
Repeat furosemide 40 mg IV. He would benefit from a limited course of furosemide 40 mg PO daily at home.
Restart carvedilol 6.25 mg BID and monitor BP this morning.
Continue to hold hydralazine/HCTZ.
Incentive spirometry.
Ambulate.
Discharge planning.
Impression / Plan
-
Impression/Plan: 79 y/o male with CHATO, HTN, HLD, JOHN and a 90% true ostial LAD coronary artery disease admitted for elective MIDCAB.
#CAD
-Relatively new diagnosis after classic symptoms and a markedly positive stress echocardiogram.
-S/P MIDCAB (robotic SMITH to LAD) via thoracotomy with rib plating closure with Dr. Mcintyre, 04/12/2024.
-Routine postoperative management.
-Chest tube/pain management per CT surgery.
-Continue aspirin, amiodarone, metoprolol and rosuvastatin.
-Encourage incentive spirometry/ambulation.
-Repeat furosemide 40 mg IV. He would benefit from a limited course of furosemide 40 mg PO daily at home.
#CHATO
-Chronic.
-S/P prior CEA
-Continue aspirin an rosuvastatin.
#HTN
-Chronic.
-Restart carvedilol 6.25 mg BID this morning and monitor effect.
-Hold hydralazine and HCTZ at discharge as his BP is relatively controlled.
#HLD
-Chronic.
-Continue rosuvastatin and ezetimibe.
-Goal LDL < 55.
#JOHN
#Dispo
-CTS planning to discharge.
Subjective/Interval History:
No acute events.
Blood pressure is stable.
Residual rib pain, controlled.
DATA:
Cardiac catheterization, 04/07/2024:
CONCLUSIONS
1. Left dominant circulation with a 30% lesion in the proximal circumflex, a 70% lesion in the mid LAD and a densely calcified, 90%, true ostial lesion in the ostium/proximal LAD.
2. Normal filling pressures (LVEDP = 14 mmHg at 105.7 kg).
TTE, 04/08/2024:
CONCLUSIONS
Normal left ventricular size with moderate concentric hypertrophy and normal
systolic function. Normal regional wall motion. LV ejection fraction is 55-60%
by Carson's method of discs. Stage I diastolic dysfunction suggestive of
abnormal relaxation.
Top normal right ventricular size and systolic function.
Mild left atrial dilation.
No significant valve abnormaliteis.
No evidence of pulmonary hypertension.
No significant change since the prior study of 06/23/2017.
Intraoperative LUCAS, 04/12/2024:
CONCLUSIONS
Normal biventricular systolic function with LVEF 65% by visual inspection.
Concentric hypertrophy (1.4 cm) of the left ventricle is noted.
The cardiac valves are grossly normal.
The thoracic aorta has grade III disease burden in the ascending and descending
portions. The arch was poorly visualized.
POST OPERATIVE FINDINGS
S/P MIDCAB SMITH to LAD.
Grossly unchanged exam.
Physical Exam
Vital Signs/Labs
Vital Signs
Temp Pulse Resp BP Pulse Ox
37.1 C 90 14 134/82 95
04/15/24 04:00 04/15/24 06:00 04/15/24 04:00 04/15/24 03:46 04/15/24 04:00
04/13/24 04/14/24 04/15/24
11:59 11:59 11:59
Actual Weight 106.7 kg 109 kg 108.7 kg
04/15/24 03:48
04/15/24 03:48
PT 16.4 Sec (11.4-14.6) H 04/12/24 12:07
INR 1.34 04/12/24 12:07
APTT 27.7 Sec (23.4-35.0) 04/12/24 12:07
Magnesium 2.1 mg/dl (1.6-2.3) 04/15/24 03:48
Physical Exam
Constitutional: No acute distress and Comfortable
EENT: Anicteric and Moist mucous membranes
Cardiovascular: Rhythm & rate is regular, Pedal edema is absent, JVD pressure is normal, S1S2 is normal and Murmur/rub/gallop absent
Respiratory: Respiratory effort normal, Lungs clear to auscul., Wheeze Absent, Crackles Absent and Rhonchi Absent
GI: Soft, Distention absent, Flat, Non tender and Normal bowel sounds
Neuro/Psych: AO x 3
Data Reviewed
-
Date of Service: April 15, 2024
Medical Decision Making: Reviewed Test Results, Independent Historian Assessment and Test Interpretation
EKG: Tracing Personally Visualized and interpreted and Report Reviewed by me
Echo: Tracing Personally Visualized and interpreted and Report Reviewed by me
X-Ray/CT/US/MRI/NUC/PET: Image Personally Visualized and interpreted and Report Reviewed by me
Medical Tests (PFT, Pathology etc): Image Personally Visualized and interpreted and Report Reviewed by me
Labs: Labs Reviewed by me
Old Records: Reviewed
[2024-04-15] MEDS: NEURONTIN 200 MG PO (08:36)
[2024-04-15] MEDS: MUCINEX 600 MG PO (08:36)
[2024-04-15] MEDS: PROSCAR 5 MG PO (08:36)
[2024-04-15] MEDS: LOW STRENGTH ASPIRIN 81 MG PO (08:36)
[2024-04-15] MEDS: PACERONE 400 MG PO (08:36)
[2024-04-15] MEDS: MAGNESIUM OXIDE 500 MG PO (08:36)
[2024-04-15] MEDS: PLAVIX 75 MG PO (08:36)
[2024-04-15] MEDS: PROTONIX 40 MG PO (08:36)
[2024-04-15] MEDS: BACTROBAN 2% OINTMENT 1 APPLIC NASAL (08:37)
[2024-04-15] MEDS: LIDOCAINE 4% PATCH 1 PATCH TOPICAL (08:37)
[2024-04-15] MEDS: CLARITIN 10 MG PO (08:37)
[2024-04-15] MEDS: SENOKOT-S PO (08:37)
[2024-04-15] MEDS: LASIX 40 MG IV (09:02)
[2024-04-15] MEDS: NOVOLOG FLEXPEN-MODERATE RESISTANCE SC (09:28)
--- NOTE | 2024-04-15 09:28 | PTCARENOTE ---
Assumed care of patient from third shift lieutenant RN. AAO x 3. Denies pain. SR/ST on monitor. Room air 96%. IS to 2000. Surgical sites ecchymotic but intact. Pulses palpable. trace lower extremity edema appreciated. Plan for day discussed.
--- NOTE | 2024-04-15 09:31 | PTCARENOTE ---
RT IJ cordis removed. Manual pressure applied, hemostasis achieved. OOB ambulating
[2024-04-15] MEDS: COREG 3.125 MG PO (10:15)
[2024-04-15] MEDS: ROXICODONE 5 MG PO (11:46)
--- NOTE | 2024-04-15 11:49 | CM ---
CM following for DC planning needs.
Met w/ patient at bedside; spouse also present.
Pt. anticipates DC today.
Reviewed DC plan for home w/ CT Transitional Care RN.
Discussed post op MD appointments.
CM will cont. to follow.
--- NOTE | 2024-04-15 12:00 | W.DCSUMMARY ---
Discharge Summary
Discharge Data
Date of Admission: 04/12/24
Date of Discharge: 04/15/24
-
Pending Results: No
Hospital Course
Primary care physician: Reza Liu
Outpatient wall washer: Lois
Inpatient consultants: MARBIN
Procedures:
1. 04/12/24 Robotic assisted Minimally invasive direct coronary artery bypass (MIDCAB) with SMITH-LAD (off pump) by Dr. Chava Mcintyre
Primary Diagnosis:
1. single vessel coronary artery disease
2. positive stress test
3. stable angina
Secondary Diagnoses:
1. Hypertension
2. Hyperlipidemia
3. benign prostatic hypertrophy
4. obstructive sleep apnea
5. class 1 obesity
6. bilateral carotid stenoses s/p Left carotid endarterectomy 2013
7. acute postop blood loss anemia, stable without transfusion
8. postop frequent PVCs, on PO amiodarone taper
HPI: Patient is a 79-year-old male with recent positive stress test and subsequent cardiac catheterization demonstrating single-vessel coronary artery disease. Patient was seen in consultation by CT surgery and planned for robotic assisted MIDCAB.
After all preoperative workup was completed he was deemed a suitable candidate for surgery; patient required Plavix washout and was discharged to home and brought back electively on 04/12/2024.
Hospital course: Pt underwent an uncomplicated robotic assisted MIDCAB by Dr. Mcintyre and was transferred to CVICU per protocol on a nitroglycerin gtt for hypertension. He was extubated at 3pm that day. He remained hemodynamically stable overnight. on
postop day #1 he remains sinus with PVCs, po Amiodarone for afib ppx increased due to PVC burden. resumed low dose BB. pain well controlled. on post op day #2 Chest tube discontinued without incident. lasix & BB held due to low blood pressures.
continues to ambulate and progress well with cardiac rehab. on postop day #3 low dose coreg resumed, BP stable. IV lasix continued. cordis discontinued without incident. Discharged to home with close follow up with the transitional care nurse from
.
Home medication changes: Patient instructed to stop taking hydralazine and hydrochlorothiazide at this time due to relative hypotension. Home Coreg has been decreased from 6.25 to 3.125 mg twice daily due to relative hypotension, this can be
increased as his blood pressure allows. New prescription for Plavix for graft patency (recommend x1 month-non ACS), Lasix and potassium supplementation x 5 days for postop volume overload. New amiodarone 200 mg p.o. twice daily x 2 weeks then once
daily until reevaluation at follow-up visit for postop PVC burden and A-fib prophylaxis.
Discharge Plan
-
Patient Disposition: Home (Routine Discharge)
Discharge Diagnosis/Procedures: coronary artery disease, s/p robotic assisted MIDCAB
Condition: Good
Diet: Low Fat and Low Cholesterol
Activity: No strenuous activity
Driving Restrictions: Not until seen by your Dr
Bathing Restrictions: OK to Shower
Other Services: Cardiac Rehab
Specialty Instructions: Weigh Daily- Call MD for wt gain/loss 3 lbs overnight/5 lbs in 1 week
Referrals:
CT Transitional Care Nurse [Outside]
(
The Cardiothoracic Transitional Care Nurse will call you to set up a visit in 1-2 days.)
[facility] [Outside]
(Cardiac Rehab Orientation appointment is on Friday, May 17, 2024@ 8am.
The Cardiac Rehab gym is located on the first floor of the [facility].)
Chris Cox MD [Active] - in three to four weeks
Joyce Puri CRNP [Specified Professional Personl] - 05/26/24 10:00 am (*your appt on 04/28 with Joyce Puri NP was CANCELLED*)
Chava Mcintyre MD [Active] - 05/13/24 3:15 pm
UNKNOWN - PT NOT,INTERVIEWE [Unknown Provider] -
Prescriptions:
New
amiodarone 200 mg Tablet
200 mg PO BID Qty: 90 0RF
Rx Instructions:
take twice daily for 2 weeks (until 04/29), then once daily until seen by your doctor
clopidogrel 75 mg Tablet
75 mg PO DAILY Qty: 30 1RF
acetaminophen 325 mg Tablet
650 mg PO Q6HPRN PRN (Reason: mild pain,headache,temp >101F ) Qty: 0 0RF
sennosides-docusate sodium 8.6-50 mg Tablet
1 tab PO Q12 PRN (Reason: Constipation) Qty: 0 0RF
cyclobenzaprine 10 mg Tablet
5 mg PO Q8HPRN PRN (Reason: muscle spasm) Qty: 20 0RF
oxycodone 5 mg Tablet
2.5 - 5 mg PO Q6HPRN PRN (Reason: moderate to severe pain) Qty: 28 0RF
furosemide [Lasix] 40 mg tablet
40 mg PO DAILY Qty: 5 0RF
potassium chloride [Klor-Con M20] 20 mEq tablet,ER particles/crystals
20 meq PO DAILY Qty: 5 0RF
Continued
aspirin 81 MG tablet,delayed release (DR/EC)
81 mg PO DAILY
folic acid 400 mcg Tablet
0.4 mg PO DAILY Qty: 0
benzonatate 200 mg Capsule
200 mg PO TID
ascorbic acid-zinc sulfate 100-200 mg Tablet
1 tab PO HS
zolpidem [Ambien] 5 mg Tablet
5 mg PO HSPRN PRN (Reason: sleep)
azelastine 137 mcg (0.1 %) Gordon,Non-Aerosol
1 spray INTRANASAL BIDPRN PRN (Reason: allergies)
fluticasone propionate 50 mcg/actuation Gordon,Suspension
2 spray INTRANASAL DAILY
finasteride 5 mg Tablet
5 mg PO DAILY
loratadine [Claritin] 10 mg Tablet
10 mg PO DAILY
ezetimibe [Zetia] 10 mg Tablet
10 mg PO HS
cholecalciferol (vitamin D3) [Vitamin D3] 25 mcg (1,000 unit) Tablet
25 mcg PO HS
rosuvastatin 40 mg Tablet
40 mg PO QPM Qty: 30 1RF
lorazepam 1 mg Tablet
1 mg PO DAILY PRN (Reason: Anxiety)
Changed
carvedilol 6.25 mg tablet
3.125 mg PO BID Qty: 0 0RF
Discontinued
nitroglycerin 0.4 mg Tablet, Sublingual
0.4 mg sublingual [id number] PRN (Reason: chest pain) Qty: 25 0RF
hydralazine 10 mg tablet
10 mg PO BID
hydrochlorothiazide 25 mg tablet
25 mg PO DAILY
Discharge Orders:
Discharge Patient (As Directed); Ordered 04/15/24
Ordered By: Angela Boland
Care Plan Goals
Care Plan Goals:
Problem: Readiness for enhanced knowledge related to diagnosis and treatment plan
Goal: Understand your diagnosis and treatment plan needs, including medications if applicable.
Instructions: Know your diagnosis, underlying causes and treatment plan options, including medications if applicable. Consult with your health care team to learn about your diagnosis and treatment plan, including medications if applicable.
Discharge Date and Time
Discharge Date/Time: 04/15/24 14:46
Print Language: FRENCH
--- NOTE | 2024-04-15 12:00 | PTCARENOTE ---
Ambulating at sylvia in room, given oxycodone for incisional pain. home expectations discussed. Questions answered. VSS Assessment otherwise unchanged from prior.
--- NOTE | 2024-04-15 12:30 | PTCARENOTE ---
Pt assisted to shower using shower chair. Pt tolerated w/o issue. Assisted with dressing post. Telemetry discontinued and INT removed. Discharge instructions reviewed. Questions answered. Wheeled to car by volunteer.
== END 2024-04-15 14:46 | disposition home or self-care (01) | DRG 236 ==
LOC: CVICU 04:43
PROVIDERS: Anesthesiology; Clinical Nurse Specialist Acute Care; ADMITTING PHYSICIAN Thoracic Surgery (Cardiothoracic Vascular Surgery); CONSULT PHYSICIAN Internal Medicine Critical Care Medicine; FAMILY PHYSICIAN Internal Medicine; REFERRING PHYSICIAN Internal Medicine Cardiovascular Disease
PROC: 02100Z9 Bypass Coronary Artery, One Artery from Left Internal Mammary, Open Approach (ICD-10-PCS; 2024-04-12)
PROC: 8E0W0CZ Robotic Assisted Procedure of Trunk Region, Open Approach (ICD-10-PCS; 2024-04-12)
PROC: B24BZZ4 Ultrasonography of Heart with Aorta, Transesophageal (ICD-10-PCS; 2024-04-12)
DX: I25.118 Atherosclerotic heart disease of native coronary artery with other forms of angina pectoris (principal); D62 Acute posthemorrhagic anemia; J98.11 Atelectasis; K21.9 Gastro-esophageal reflux disease without esophagitis; E78.5 Hyperlipidemia, unspecified; I10 Essential (primary) hypertension; G47.33 Obstructive sleep apnea (adult) (pediatric); R91.1 Solitary pulmonary nodule; I65.23 Occlusion and stenosis of bilateral carotid arteries; E66.811 Obesity, class 1; I95.9 Hypotension, unspecified; E87.70 Fluid overload, unspecified; E86.1 Hypovolemia; I49.3 Ventricular premature depolarization; R09.82 Postnasal drip; R05.3 Chronic cough; M19.90 Unspecified osteoarthritis, unspecified site; N40.0 Benign prostatic hyperplasia without lower urinary tract symptoms; Z68.36 Body mass index [BMI] 36.0-36.9, adult; Z79.82 Long term (current) use of aspirin; Z79.899 Other long term (current) drug therapy; Z86.16 Personal history of COVID-19
CPT/HCPCS: 71045; 71046; 80048; 81003; 82330; 82565; 82805; 82947; 82962; 83735; 84132; 84302; 84520; 85014; 85018; 85027; 85049; 85610; 85730; 86803; 86850; 86900; 86901; 86920; 93005; 93312; 93320; 93325; 94002; J2916

== ENCOUNTER → 2024-04-26 16:38 | Outpatient (REF) | payer MEDICARE, OTHER, SELFPAY | LOC: RAD 16:38 | PROVIDERS: ATTENDING PHYSICIAN Thoracic Surgery (Cardiothoracic Vascular Surgery); FAMILY PHYSICIAN Internal Medicine | DX: R06.02 Shortness of breath (principal); Z98.890 Other specified postprocedural states | CPT/HCPCS: 71046 ==

== ENCOUNTER → 2024-04-27 13:22 | Outpatient (REF) | payer MEDICARE, OTHER, SELFPAY ==
[2024-04-27 13:40] VITALS: BP 149/98; BP_SYST 98
[2024-04-27 14:04] VITALS: BP 145/76; BP_SYST 93
[2024-04-27 14:30] VITALS: BP 145/76
== END ==
LOC: RADI 13:22
PROVIDERS: ATTENDING PHYSICIAN Thoracic Surgery (Cardiothoracic Vascular Surgery); FAMILY PHYSICIAN Internal Medicine; OTHER PHYSICIAN Internal Medicine Cardiovascular Disease; REFERRING PHYSICIAN Internal Medicine Critical Care Medicine
DX: J90 Pleural effusion, not elsewhere classified (principal)
CPT/HCPCS: 32555; 71046

== ENCOUNTER → 2024-04-30 10:57 | Outpatient (REF) | payer MEDICARE, OTHER, SELFPAY | LOC: RAD 10:57 | PROVIDERS: ATTENDING PHYSICIAN Thoracic Surgery (Cardiothoracic Vascular Surgery); FAMILY PHYSICIAN Internal Medicine | DX: R05.3 Chronic cough (principal) | CPT/HCPCS: 71046 ==

== ENCOUNTER 2024-05-01 00:07 | Inpatient (IN) | payer MEDICARE, OTHER, SELFPAY ==
[2024-04-30] VITALS (7 sets, daily range): BP systolic 130–169; BP diastolic 65–95; BMI 31.6
[2024-04-30] MEDS: DUONEB 3 ML INH (18:36)
[2024-04-30 18:57] LABS: % Basophils 0.4 % (0-2); % Immature Granulocytes 0.3 % (0-0.5); % Lymphocytes 10.2 % (20.5-51.1); % Monocytes 8.8 % (1.7-9.3); % Neutrophils 72.3 % (42.2-75.2); Absolute Eosinophils 0.7 10^3/uL (0-0.7); Absolute Lymphocytes 0.9 10^3/uL (1.2-3.4); Absolute Monocytes 0.8 10^3/uL (0.1-0.6); Absolute Neutrophils 6.6 10^3/uL (1.4-6.5); Hematocrit 28.4 % (39.0-52.0); Hemoglobin 9.9 g/dL (13.0-18.0); Mean Corp Hgb Conc. 34.9 g/dL (33.0-37.0); Mean Corpuscular Hgb 30.4 pg (27.0-31.0); Mean Corpuscular Volume 87.1 fL (80.0-94.0); Mean Platelet Volume 9.1 fL (7.4-10.4); Nucleated Red Blood Cells % 0 % (-); Platelet Count 372 10^3/uL (130-400); Red Blood Cell Count 3.26 10^6/uL (4.70-6.10); Red Cell Dist. Width 12.5 % (11.5-14.5); White Blood Cell Count 9.1 10^3/uL (4.8-10.8)
--- NOTE | 2024-04-30 18:58 | ED.GENMED ---
History of Present Illness
General
Chief Complaint: Breathing Problem
Source: patient
Exam Limitations: none
Time Seen by Provider: 04/30/24 18:23
Nursing documentation reviewed up to this point in time: agreed with
History of Present Illness
History of Present Illness:
79 yo male w h/o 04/12/24 Robotic assisted Minimally invasive direct coronary artery bypass (MIDCAB) with SMITH-LAD (off pump) by Dr. Chava Mcintyre
04/27 had 2 L pleural fluid drained here on 04/27
Here for worsening cough and SOB pst 5 days
Hx chronic cough on chronic Benzonatate and more recently Codeine/Guaifenesin states cough and SOB have become increasingly worse over past 5 days. Cannot sleep due to symptoms. Denies CP.
Past History
Past History
ED Past Medical History: GERD, HTN, Hypercholesterolemia, Other (Obstructive sleep apnea) and Other (Carotid disease)
ED Past Surgical History: Orthopedic, Urological and Other (Uvulectomy, left carotid endarterectomy 2013)
Social History
Tobacco: Non-smoker
Alcohol: Daily (Wine with dinner)
Personal:
Living: with family
Employment: Retired
Family History
Family History: Other (Noncontributory.)
Review of Systems
Review of Systems
Allergies reviewed?: Yes
All Other Systems: ROS reviewed and negative except as documented in HPI and ROS
Constitutional: Denies fever
Respiratory: Reports cough and trouble breathing
Cardiac: Denies chest pain
ABD/GI: Denies abdominal pain, nausea, vomiting or diarrhea
: Denies dysuria or difficulty voiding
Musculoskeletal: Denies edema
Skin: Reports no symptoms
Neurological: Reports no symptoms
Phy Exam
Physical Exam
Physical Exam:
GENERAL: No acute distress. A&Ox3.
CONSTITUTIONAL: Afebrile.
EYES: clear, conjunctivae normal
ENMT: moist mucus membranes, Pharynx nl
RESPIRATORY: Regular respirations, nonlabored, lungs clear with diminished sounds Left base. No hypoxemia. Persistent cough
CARDIOVASCULAR: Regular rate and rhythm, no murmurs, no rubs.
GI: Soft, nontender, normal BS
MUSCULOSKELETAL: Moves with ease. Well perfused.
SKIN: Warm, dry, pink
PSYCH: Normal mood and affect. Well kept, interactive and appropriate
NEUROLOGIC: Awake, alert and oriented. No focal neurological deficits
Scores
Heart Failure Risk
Heart Failure Risk Score: Not Applicable
Course
Orders/Labs/Results
Orders:
Orders
04/30/24 18:01
Electrocardiogram (*1) Urgent
Reason for Study: Shortness of Breath
04/30/24 18:02
EKG- Treatment ONCE
04/30/24 18:33
Ipratropium/Albuterol Sulfate [Duoneb] 3 ml .ROUTE .STK-MED ONE
04/30/24 18:34
Ipratropium/Albuterol Sulfate [Duoneb] 3 ml INH R NOW ONE
04/30/24 18:46
Complete Blood Count/With Diff Urgent
Comprehensive Metabolic Panel Urgent
04/30/24 19:05
BNP [NT-proBNP] Urgent
04/30/24 21:06
CT Chest W/o Iv Contrast Urgent
Comment:
Reason For Exam: further eval L pleural effusion vs pna
04/30/24 21:19
COVID-19 Antigen Urgent
Source: Nasal Swab
04/30/24 22:00
Flush (0.9% Sodium Chloride) [Flush (Nss)] See Dose Instructions IV PER PROTOCOL
04/30/24 23:28
Admit Patient As Directed
Co-Sign Provider:
Level of Care: Inpatient admission
Assign to:: IVU
Physician / Group: Reza/CT Surgery
Diagnosis: Left pleural effusion
Reason for Hospitalization: Left pleural effusion following MIDCAB, for possible left thoracentesis
Expected length of stay greater than two midnights?: Yes
ELOS- Estimated Length of Stay in days: 3
I certify the patient meets the requirements for IP care: Yes
VTE Contraindication Routine
VTE Mechanical Device Contraindication: Surgical Contraindication
Pharmocologic Contraindication: Medical Contraindication
Vital Signs As Directed
Frequency: Per unit guidelines
PRN Pain Medication Management As Directed
May give lesser potent ordered pain med per pt: Yes
preference::
Protocol:: Medication orders for pain may be administered in a
manner that supports deferring to patient preference
when the pt is:
- Requesting an ordered lesser potent pain medication.
Least to most potent pain medications are defined
as: acetaminophen < NSAID < tramadol < opioids
(morphine, oxycodone, hydromorphone).
- Requesting a lesser dose of the same medication IF
ORDERED.
- Requesting a less intrusive route of administration
if both routes are prescribed by the provider (PO <
IV).
Abnormal Lab Results
04/30/24
18:46
RBC 3.26 L 10^6/uL
(4.70-6.10)
Hgb 9.9 L g/dL
(13.0-18.0)
Hct 28.4 L %
(39.0-52.0)
Absolute Neuts (auto) 6.6 H 10^3/uL
(1.4-6.5)
Absolute Lymphs (auto) 0.9 L 10^3/uL
(1.2-3.4)
Absolute Monos (auto) 0.8 H 10^3/uL
(0.1-0.6)
Lymphocytes % 10.2 L %
(20.5-51.1)
Eosinophils % 8.0 H %
(0-6)
BUN 23 H mg/dl
(9-20)
Glucose 134 H mg/dl
(70-99)
Total Protein 5.8 L g/dl
(6.3-8.2)
Albumin 3.3 L g/dl
(3.5-5.0)
04/30/24 18:46
04/30/24 18:46
Vital Signs
Initial and Last Documented VS:
Initial Vital Signs
Temp Pulse Resp BP Pulse Ox
99.5 F 107 26 130/95 96
04/30/24 17:56 04/30/24 17:56 04/30/24 17:56 04/30/24 17:56 04/30/24 17:56
Last Documented Vital Signs
Temp Pulse Resp BP Pulse Ox
99.5 F 93 19 149/82 95
04/30/24 17:56 04/30/24 22:30 04/30/24 22:30 04/30/24 22:00 04/30/24 22:35
MDM/Problems Addressed
Differential Diagnosis Includes:
Recurring pleural effusion, PNA
MDM/Problems Addressed:
79 yo male w h/o 04/12/24 Robotic assisted Minimally invasive direct coronary artery bypass (MIDCAB) with SMITH-LAD (off pump) by Dr. Chava Mcintyre
04/27 had 2 L pleural fluid drained here on 04/27
Here for worsening cough and SOB past 5 days
Hx chronic cough on chronic Benzonatate and more recently Codeine/Guaifenesin states cough and SOB have become increasingly worse over past 5 days. Cannot sleep due to symptoms. Denies CP.
7:00 p.m.
Consulted Cardiothoracic surgeon Dr. Cobb.
8:45 p.m.
CBC, CMP with no clinically significant abnormality
COVID test is negative
Antonio BARBER for Dr. Cobb called and asked that we admit to IVU to Dr. Cobb service and he will write the orders.
He states pt needs thoracentesis
Pt informed
9:[address] Cobb in to see pt.
Chest CT pending
Patient remains stable
*Critical Care Note
Total Time (30-74mins, 75-104mins- exclusive of procedures): Not Applicable
ED Attending Note
-
Portions of this chart may have been created with voice recognition software.� Occasional wrong word or��sound alike� substitutions may have occurred due to the inherent limitations of voice recognition software.
Discharge Plan
Departure
Patient Disposition: Admit
Date of Disposition: 04/30/24
Time of Disposition: 20:50
Admit to: IVU
Presentation/result/management discussed w/ accepting MD/DO: Dr. Cobb
Condition: Fair
Discharge Problem:
Pleural effusion on left
Prescriptions:
No Action
aspirin 81 MG tablet,delayed release (DR/EC)
81 mg PO DAILY
folic acid 400 mcg Tablet
0.4 mg PO DAILY Qty: 0
benzonatate 200 mg Capsule
200 mg PO TID
ascorbic acid-zinc sulfate 100-200 mg Tablet
1 tab PO HS
zolpidem [Ambien] 5 mg Tablet
5 mg PO HSPRN PRN (Reason: sleep)
azelastine 137 mcg (0.1 %) [place],Non-Aerosol
1 spray INTRANASAL BIDPRN PRN (Reason: allergies)
fluticasone propionate 50 mcg/actuation [place],Suspension
2 spray INTRANASAL DAILY
finasteride 5 mg Tablet
5 mg PO DAILY
loratadine [Claritin] 10 mg Tablet
10 mg PO DAILY
ezetimibe [Zetia] 10 mg Tablet
10 mg PO HS
cholecalciferol (vitamin D3) [Vitamin D3] 25 mcg (1,000 unit) Tablet
25 mcg PO HS
rosuvastatin 40 mg Tablet
40 mg PO QPM Qty: 30 1RF
lorazepam 1 mg Tablet
1 mg PO DAILY PRN (Reason: Anxiety)
amiodarone 200 mg Tablet
200 mg PO BID Qty: 90 0RF
Rx Instructions:
take twice daily for 2 weeks (until 04/29), then once daily until seen by your doctor
clopidogrel 75 mg Tablet
75 mg PO DAILY Qty: 30 1RF
acetaminophen 325 mg Tablet
650 mg PO Q6HPRN PRN (Reason: mild pain,headache,temp >101F ) Qty: 0 0RF
sennosides-docusate sodium 8.6-50 mg Tablet
1 tab PO Q12 PRN (Reason: Constipation) Qty: 0 0RF
cyclobenzaprine 10 mg Tablet
5 mg PO Q8HPRN PRN (Reason: muscle spasm) Qty: 20 0RF
oxycodone 5 mg Tablet
2.5 - 5 mg PO Q6HPRN PRN (Reason: moderate to severe pain) Qty: 28 0RF
carvedilol 6.25 mg tablet
3.125 mg PO BID Qty: 0 0RF
furosemide [Lasix] 40 mg tablet
40 mg PO DAILY Qty: 5 0RF
potassium chloride [Klor-Con M20] 20 mEq tablet,ER particles/crystals
20 meq PO DAILY Qty: 5 0RF
codeine-guaifenesin 10-100 mg/5 mL liquid
10 ml PO Q4HPRN PRN (Reason: cough)
gabapentin 100 mg capsule
100 mg PO TID
Referrals:
Reza Liu MD [Family Provider] -
Interventions
Interventions:
*Risk Screen - Suicide Last Done: 04/30/24 18:50
*General Assessment Last Done: 04/30/24 18:50
*Neglect/Abuse Screening Last Done: 04/30/24 18:50
*ED COVID-19 Vaccine History Last Done: 04/30/24 18:50
ED- Cardiac Assessment Last Done: 04/30/24 18:52
ED- Pulmonary Assessment Last Done: 04/30/24 18:52
Discharge Date and Time
Print Language: MOZAMBICAN
[2024-04-30 19:12] LABS: ALT (SGPT) 23 U/L (0-50); AST (SGOT) 25 U/L (17-59); Albumin 3.3 g/dl (3.5-5.0); Alkaline Phosphatase 60 U/L (38-126); Blood Urea Nitrogen 23 mg/dl (9-20); Calcium 9.1 mg/dl (8.4-10.2); Carbon Dioxide 29 mmol/L (22-30); Chloride 99 mmol/L (98-107); Estimated Creatinine Clearance 73 ml/min; Glucose 134 mg/dl (70-99); Potassium 4.4 mmol/L (3.5-5.1); Sodium 136 mmol/L (135-145); Total Bilirubin 0.6 mg/dl (0.2-1.3); Total Protein 5.8 g/dl (6.3-8.2); eGFR > 60.00
[2024-04-30 19:31] LABS: NT-proBNP 606 pg/ml
[2024-04-30 21:41] LABS: COVID-19 Antigen Negative (Negative)
[2024-05-01 00:03] VITALS: BP 144/94
--- NOTE | 2024-05-01 00:23 | HPS.HSE ---
Family Physician
-
Family Physician: Reza Liu
Chief Complaint
-
Recurrent cough and SOB
History of Present Illness
79 y/o pleasant man known to our service who underwent Robotic assisted MIDCAB (single-vessel bypass SMITH in situ to LAD)/ Rib plating (4 screw straight gold plate with slight curve and 4 x 12 mm screws, by Dr. Mcintyre, 04/12/24, for single vessel CAD.
Pt did well postop without any complications other than his known mild chronic cough and was d/c'd home on 04/15/24. Pt states he had a f/u scheduled visit with Dr. Mcintyre on 05/13/24 however was having persistent cough with associated SOB and
pleuritic chest pain and was seen sooner in the office by Dr. Mcintyre's Nurse Radha and told to get CXR on 04/26. CXR at that time showed a moderate left pleural effusion and he was instructed to come to the hospital for chest drainage. Pt underwent a
left thoracentesis on 04/27/24 by IR with evacuation of 2000 cc of grossly bloody pleural fluid. Pt states he felt great that day, but had recurrence of cough, pleuritic chest pain and SOB the following day of 04/28/24. Pt presented [facility] on
04/30/26 with the exacerbation of cough, pleuritic chest pain and SOB. Denies any associated fever or angina. CXR obtained in the ED showed small left pleural effusion with underlying pneumonia versus atelectasis, slightly worse when compared with
the prior study. Chest CT showed small to moderate partially loculated left pleural effusion with associated mild atelectasis, stable bilateral upper lobe groundglass nodules, and minimally displaced anterior left fifth rib fracture, new from prior.
Pt was admitted for possible left thoracentesis. Plavix currently placed on hold. Off note, pt's surgical incisions are healing nicely without any open wounds or drainage.
Medical History
Past Medical History
Past Medical History: Reports Other
Additional Past Medical History:
Assessment:
-Recurrent cough with associated pleuritic chest pain and SOB
-Recurrent Left pleural effusion
-Stable bilateral upper lobe groundglass nodules
-Minimally displaced anterior left fifth rib fracture
-S/p Robotic assisted MIDCAB (single-vessel bypass SMITH in situ to LAD)/ Rib plating (4 screw straight gold plate with slight curve and 4 x 12 mm screws, by Dr. Mcintyre, 04/12/24
-Coronary artery disease involving the ostial LAD
-Abnormal stress test with marked EKG changes, with concomitant drop in left ventricular ejection fraction with exercise
-LVEF postop 60-65% per intraop LUCAS
-Stable angina, exertional
-CAD
-History of COVID
-GERD
-Hypertension
-Hyperlipidemia
-BPH, on Proscar @ home
-Postnasal drip with chronic cough
-JOHN, uses own CPAP
-Class 1 obesity (BMI 30.6)
-L carotid art. disease S/p L CEA by Dr. Metz, 2013
-Acute postop blood loss/Anemia (stable without transfusion)
-Acute postop atelectasis
-Acute postop hypovolemia with subsequent hypervolemia
Past Surgical History: Reports Other
Additional Past Surgical History:
-S/P Left thoracentesis by IR with evacuation of 2000 cc of grossly bloody pleural fluid, 04/27/24
-S/p Robotic assisted MIDCAB (single-vessel bypass SMITH in situ to LAD)/ Rib plating (4 screw straight gold plate with slight curve and 4 x 12 mm screws, by Dr. Mcintyre, 04/12/24
-S/p L CEA by Dr. Metz, 2013
Social History
Tobacco: Non-smoker
Alcohol: Occasional
Drug: None
Personal:
Living: With Family
Employment: Retired
Family History
Family History: Not pertinent
Allergies / Home Medications
Allergies reflects when Allergies were last updated in [employer].
Home Medications with original date entered in [employer]
Allergy/Medication List:
Seasonal allergies
Review of Systems
-
History Source: Patient
A 12 point ROS was completed and negative except as noted: Yes
Respiratory: Reports Cough, Trouble Breathing and Other (pleuritic chest pain)
Physical Exam
Vital Signs
Vital Signs
Temp Pulse Resp BP Pulse Ox
99.5 F 93 19 149/82 95
04/30/24 17:56 04/30/24 22:30 04/30/24 22:30 04/30/24 22:00 04/30/24 22:35
Physical Exam
General: Well Developed, Well Nourished, No Apparent Distress, Comfortable and Conversant
HEENT: NormoCephalic, Anicteric, Moist mucous membranes and Atraumatic
Respiratory: Decreased Breath Sounds (at left base, no crackles or rhonchi)
Cardiac: S1/S2 and Regular Rhythm
Breast: Deferred by me
GI: Soft, Non Tender, Non Distended and Normal Bowel Sounds
Rectal: Deferred by Provider
Genito-urinary: Deferred by me
Musculoskeletal: No Edema and Normal Gait & Station
Skin: Warm and Dry
Neuro: Awake, Alert, Oriented, AO x 3 and No Motor Deficits
Psych: Calm and Intact Judgment/Insight
Laboratory Results
-
04/30/24 18:46
04/30/24 18:46
Laboratory Results
Total Bilirubin 0.6 mg/dl (0.2-1.3) 04/30/24 18:46
AST 25 U/L (17-59) 04/30/24 18:46
ALT 23 U/L (0-50) 04/30/24 18:46
Alkaline Phosphatase 60 U/L (38-126) 04/30/24 18:46
Impression/Plan
-
IMPRESSION: 79 y/o man with known mild chronic cough, underwent robotic assisted MIDCAB (single-vessel bypass SMITH in situ to LAD)/ Rib platingMIDCAB for single vessels CAD on 04/12/[address] Mcintyre who presents to -ED on 04/30/24 with C/O of
recurrent cough with associated pleuritic chest pain and SOB, found to have recurrent left pleural effusion
PLAN:
-For possible Left thoracentesis by IR
-Will place Plavix on hold for now
-Pain control
[2024-05-01 00:30] VITALS: BMI 30.6
--- NOTE | 2024-05-01 00:32 | PTCARENOTE ---
received patient from the ED. AAOx3. SR 90s. bp 144/94. patient complaining of left chest pain with coughing-10/10 at times. patient requesting pain medications- updated Ed Nikki CORRAL PA- see mar. frequent harsh cough. dyspnea noted; with talking.
97% on RA- 2L for comfort per patient. lungs clear; diminished at the left base. L chest surgical incisions KITCHEN AIDE, approximated-healing well. awaiting orders. educated patient to inform RN with any changes. call jc within reach.
[2024-05-01] MEDS: FLEXERIL 10 MG PO (00:38)
[2024-05-01] MEDS: ROXICODONE 5 MG PO (00:38)
[2024-05-01] MEDS: TYLENOL 650 MG PO (00:38)
[2024-05-01 01:22] VITALS: BP 136/84
[2024-05-01] MEDS: COREG 3.125 MG PO ×2 (01:22→07:45)
[2024-05-01] MEDS: CRESTOR 40 MG PO (01:22)
[2024-05-01] MEDS: PACERONE 200 MG PO ×2 (01:22→07:45)
[2024-05-01] MEDS: ZETIA 10 MG PO (01:26)
[2024-05-01 05:29] VITALS: BP 154/79
[2024-05-01] MEDS: NEURONTIN 100 MG PO (07:45)
[2024-05-01] MEDS: ZINC 50 MG PO (07:45)
[2024-05-01] MEDS: FOLVITE 1 MG PO (07:45)
[2024-05-01] MEDS: ASPIR LOW (ENTERIC COATED) 81 MG PO (07:45)
[2024-05-01] MEDS: VITAMIN C 250 MG PO (07:45)
[2024-05-01] MEDS: PROSCAR 5 MG PO (07:45)
[2024-05-01] MEDS: CLARITIN 10 MG PO (07:45)
[2024-05-01 07:49] VITALS: BP 160/88
--- NOTE | 2024-05-01 08:44 | PTCARENOTE ---
Assumed care. Patient walking in the room. Coughing intermittently, left base. Sputum cup provided, his sputum is occasionally productive and he states its thick and yellow. Left chest incisions healing.
[2024-05-01] MEDS: PULMICORT 0.25 MG INH (09:09)
--- NOTE | 2024-05-01 09:23 | W.PN.UPDATE ---
Update Note
Progress Note Update
CARDIAC SURGERY ATTENDING:
No major overnight events. HD stable. 97% RA. Continued cough. CT-C reviewed. There is a tbesz-no-mzszufdm loculated effusion on the left lateral chest wall. There is a scant amount of depend effusion. I do not believe this warrants repeat
catheter drainage at this time. Will continue w/ medical therapy for chronic cough w/ aggravation from recent surgery/effusion with close outpatient follow-up.
- Check CXR in 3 days
- D/C home
--- NOTE | 2024-05-01 10:31 | W.DCSUMMARY ---
Discharge Summary
Discharge Data
Date of Admission: 05/01/24
Date of Discharge: 05/01/24
-
Pending Results: Yes
Additional Pending Results:
Chest x-ray on 05/04/2024
Hospital Course
Patient is well-known to our service having undergone robotic assisted bypass surgery on 04/12/[address] Mcintyre. His course was complicated by a large left pleural effusion requiring thoracentesis draining greater than 2 liters of fluid. He is also
had a somewhat bothersome cough that has lasted since that time. He is currently being treated with Tessalon Perles on an outpatient basis. He presented to the ED with complaints of progressive shortness of breath and cough x 5 days. Subsequent
workup of this in the emergency department showed a small loculated left pleural effusion. Given this finding as well as his recent bypass surgery we are asked to provide input. Patient was admitted overnight for observation. I reviewed the CT
scan with Dr. Cobb this morning and while there is certainly loculated pleural effusion present it is too small to attempt drainage at this time. The risk would not outweigh the benefit of this. We will continue monitoring this effusion closely
with hope of resolution with conservative management. He will have a repeat chest x-ray this coming 05/04/2024 with results called to Dr. Mcintyre. I reviewed the discharge instructions at length with the patient answered his questions to his
satisfaction.
This note was created using voice recognition software. Please forgive any phonetic or grammatical errors as a result.
Discharge Plan
-
Patient Disposition: Home (Routine Discharge)
Discharge Diagnosis/Procedures: Recurrent left pleural effusion status post coronary artery bypass grafting
Condition: Fair
Diet: Low Fat
Activity: No restrictions
Driving Restrictions: As prior to admission
Bathing Restrictions: OK to Shower
Others Tests: Patient has an appointment for follow-up chest x-ray on Friday. He should maintain that appointment. Results should be sent to Dr. Mcintyre's office.
Specialty Instructions: Weigh Daily- Call MD for wt gain/loss 3 lbs overnight/5 lbs in 1 week
Referrals:
Reza Liu MD [Family Provider] -
Prescriptions:
Continued
aspirin 81 MG tablet,delayed release (DR/EC)
81 mg PO DAILY
folic acid 400 mcg Tablet
0.4 mg PO DAILY Qty: 0
benzonatate 200 mg Capsule
200 mg PO TID
ascorbic acid-zinc sulfate 100-200 mg Tablet
1 tab PO HS
zolpidem [Ambien] 5 mg Tablet
5 mg PO HSPRN PRN (Reason: sleep)
azelastine 137 mcg (0.1 %) [place],Non-Aerosol
1 spray INTRANASAL BIDPRN PRN (Reason: allergies)
fluticasone propionate 50 mcg/actuation [place],Suspension
2 spray INTRANASAL DAILY
finasteride 5 mg Tablet
5 mg PO DAILY
loratadine [Claritin] 10 mg Tablet
10 mg PO DAILY
ezetimibe [Zetia] 10 mg Tablet
10 mg PO HS
cholecalciferol (vitamin D3) [Vitamin D3] 25 mcg (1,000 unit) Tablet
25 mcg PO HS
rosuvastatin 40 mg Tablet
40 mg PO QPM Qty: 30 1RF
lorazepam 1 mg Tablet
1 mg PO DAILY PRN (Reason: Anxiety)
clopidogrel 75 mg Tablet
75 mg PO DAILY Qty: 30 1RF
acetaminophen 325 mg Tablet
650 mg PO Q6HPRN PRN (Reason: mild pain,headache,temp >101F ) Qty: 0 0RF
sennosides-docusate sodium 8.6-50 mg Tablet
1 tab PO Q12 PRN (Reason: Constipation) Qty: 0 0RF
cyclobenzaprine 10 mg Tablet
5 mg PO Q8HPRN PRN (Reason: muscle spasm) Qty: 20 0RF
oxycodone 5 mg Tablet
2.5 - 5 mg PO Q6HPRN PRN (Reason: moderate to severe pain) Qty: 28 0RF
carvedilol 6.25 mg tablet
3.125 mg PO BID Qty: 0 0RF
furosemide [Lasix] 40 mg tablet
40 mg PO DAILY Qty: 5 0RF
potassium chloride [Klor-Con M20] 20 mEq tablet,ER particles/crystals
20 meq PO DAILY Qty: 5 0RF
codeine-guaifenesin 10-100 mg/5 mL liquid
10 ml PO Q4HPRN PRN (Reason: cough)
gabapentin 100 mg capsule
100 mg PO TID
Discontinued
amiodarone 200 mg Tablet
200 mg PO BID Qty: 90 0RF
Rx Instructions:
take twice daily for 2 weeks (until 04/29), then once daily until seen by your doctor
Discharge Orders:
Discharge Patient (As Directed); Ordered 05/01/24
Ordered By: Cullen Cote
Discharge Date and Time
Print Language: PERSIAN
[2024-05-01] MEDS: PLAVIX 75 MG PO (11:07)
--- NOTE | 2024-05-01 11:15 | PTCARENOTE ---
Discharge teaching completed, verbalized understanding. Plavix given before discharge. IV and telemetry removed. at bedside to drive him home today
== END 2024-05-01 11:25 | disposition home or self-care (01) | DRG 187 ==
LOC: IVU 00:07
PROVIDERS: Registered Nurse; ADMITTING PHYSICIAN Thoracic Surgery (Cardiothoracic Vascular Surgery); EMERGENCY PHYSICIAN Emergency Medicine; FAMILY PHYSICIAN Internal Medicine
DX: J90 Pleural effusion, not elsewhere classified (principal); D62 Acute posthemorrhagic anemia; S22.32XA Fracture of one rib, left side, initial encounter for closed fracture; J98.11 Atelectasis; I10 Essential (primary) hypertension; Z68.30 Body mass index [BMI] 30.0-30.9, adult; E66.811 Obesity, class 1; G47.33 Obstructive sleep apnea (adult) (pediatric); I25.118 Atherosclerotic heart disease of native coronary artery with other forms of angina pectoris; Z95.1 Presence of aortocoronary bypass graft; J30.2 Other seasonal allergic rhinitis; K21.9 Gastro-esophageal reflux disease without esophagitis; N40.0 Benign prostatic hyperplasia without lower urinary tract symptoms; E78.00 Pure hypercholesterolemia, unspecified; E86.1 Hypovolemia; E87.70 Fluid overload, unspecified; R09.82 Postnasal drip; R05.3 Chronic cough; R94.39 Abnormal result of other cardiovascular function study; Z98.890 Other specified postprocedural states; Z86.16 Personal history of COVID-19; Z79.02 Long term (current) use of antithrombotics/antiplatelets; Z79.82 Long term (current) use of aspirin; Z79.899 Other long term (current) drug therapy
CPT/HCPCS: 71046; 71250; 80053; 83880; 85025; 87811; 93005; 94640; 99285

== ENCOUNTER → 2024-05-04 12:32 | Outpatient (REF) | payer MEDICARE, OTHER, SELFPAY | LOC: RAD 12:32 | PROVIDERS: ATTENDING PHYSICIAN Thoracic Surgery (Cardiothoracic Vascular Surgery); FAMILY PHYSICIAN Internal Medicine | DX: R06.02 Shortness of breath (principal); Z98.890 Other specified postprocedural states | CPT/HCPCS: 71046 ==

== ENCOUNTER → 2024-05-07 06:56 | Outpatient (REF) | payer MEDICARE, OTHER, SELFPAY ==
[2024-05-07 07:45] VITALS: BP 146/97; BP_SYST 85
[2024-05-07 08:10] VITALS: BP 143/59; BP_SYST 80
[2024-05-07 08:43] VITALS: BP 143/59
[2024-05-07 09:13] LABS: Body Fluid pH 7.42
[2024-05-07 09:29] LABS: Body Fluid Amylase < 30 U/L; Body Fluid Glucose 104 mg/dl; Body Fluid LDH 414 U/L; Body Fluid Mononuclear 69.2 %; Body Fluid Polymorphonuclear 30.8 %; Body Fluid Protein 3.9 g/dl; Body Fluid WBC 1537 /CUMM
[2024-05-07 10:56] LABS: Body Fluid Second Tech AMA
== END ==
LOC: RADI 06:56
PROVIDERS: ATTENDING PHYSICIAN Thoracic Surgery (Cardiothoracic Vascular Surgery); FAMILY PHYSICIAN Internal Medicine
DX: J90 Pleural effusion, not elsewhere classified (principal)
CPT/HCPCS: 32555; 71045; 82150; 82945; 83615; 83986; 84157; 87015; 87070; 87205; 89051

== ENCOUNTER → 2024-05-12 13:51 | Outpatient (REF) | payer MEDICARE, OTHER, SELFPAY | LOC: RAD 13:51 | PROVIDERS: ATTENDING PHYSICIAN Thoracic Surgery (Cardiothoracic Vascular Surgery); FAMILY PHYSICIAN Internal Medicine | DX: Z98.890 Other specified postprocedural states (principal); R06.02 Shortness of breath | CPT/HCPCS: 71046 ==

== ENCOUNTER 2024-06-04 13:30 | Outpatient (RCR) | payer MEDICARE, OTHER, SELFPAY ==
--- NOTE | 2024-04-30 21:19 | W.PN.UPDATE ---
Update Note
Progress Note Update
CARDIAC SURGERY ATTENDING:
Pt. seen and examined. Well known to our service s/p robotic-assisted MIDCAB w/ KENDY-to-LAD on 04/12/2024. He had an uneventful postoperative course. His CT was discontinued on POD#2, and he was deemed stable for D/C home on POD#3 (04/15/24). His
first home visit was completed on 04/16/24 and he was doing well overall w/ expected easy fatigability w/ activity. He was working well with his IS (3000mL), and was taking Benzonatate qAM and prn for his chronic cough. He was compliant w/ his
nightly CPAP. On 04/20/2024, he called w/ c/o worsening incisional pain (12/14). Gabapentin was added and his oxycodone was refilled. He was also advised to use lidocaine patch. On 04/26/24 a CXR was ordered secondary to c/o SOB and worsened
cough he was also prescribed guaifenesin-codeine. This CXR demonstrated a moderate left pleural effusion and outpatient IR-guided thoracentesis was ordered. On 04/27/24, he underwent IR-guided LEFT thoracentesis w/ removal of 2000mL of grossly
bloody pleural fluid. A post-procedure CXR was significantly improved w/ a very small residual left pleural effusion and associated atelectasis. The patient re-presented to the ED this evening w/ c/o worsening cough & progressive SOB x 5 days. He
states that he cannot sleep secondary to these symptoms. He denies an CP. A CXR was obtained that demonstrated a small LEFT effusion w/ ? PNA vs. atelectasis of his right base that was slightly worse when compared to his CXR immediately post
thoracentesis. The patient denies fevers/chills. His cough is non-productive generally w/ minor production in AM.
- Admit to IVU
- CHECK SARS CoV-2 - completed, negative
- CT-C w/o contrast to further define if residual effusion/PNA present
- SCx if any productive cough - doubt infective etiology w/ absence of fever and no sig leukocytosis
- DuoNEBs ATC prn
- Continue Tessalon Perles
- Continue Guaifenesin-Codeine
- IS 10x/hr
- Pain control
- Continue home medications
Will arrange for IR guided repeat thoracentesis if residual effusion present.
Thank you, please call w/ any questions/concerns.
Joao Cobb M.D.
[phone]
[2024-05-28 13:00] LABS: HDL Cholesterol 53 mg/dl; LDL Cholesterol, Calculated 51 mg/dl; Total Cholesterol 128 mg/dl (50-199); Triglyceride 124 mg/dl (10-149); Very Low Density Lipoprotein 24 mg/dl (0-30)
== END 2024-06-04 23:59 | disposition home or self-care (01) ==
LOC: CRHB 13:30
PROVIDERS: ATTENDING PHYSICIAN Internal Medicine Cardiovascular Disease; FAMILY PHYSICIAN Internal Medicine
DX: I25.10 Atherosclerotic heart disease of native coronary artery without angina pectoris (principal); Z95.1 Presence of aortocoronary bypass graft
CPT/HCPCS: 36415; 80061; G0422; G0423

== ENCOUNTER 2024-07-05 14:04 | Outpatient (RCR) | payer MEDICARE, OTHER, SELFPAY | END 2024-07-05 23:59 | disposition home or self-care (01) | LOC: CRHB 14:04 | PROVIDERS: ATTENDING PHYSICIAN Internal Medicine Cardiovascular Disease; FAMILY PHYSICIAN Internal Medicine | DX: I25.10 Atherosclerotic heart disease of native coronary artery without angina pectoris (principal); Z95.1 Presence of aortocoronary bypass graft | CPT/HCPCS: G0422; G0423 ==

== ENCOUNTER → 2024-07-06 10:35 | Outpatient (REF) | payer MEDICARE, OTHER, SELFPAY | LOC: DHVS 10:35 | PROVIDERS: ATTENDING PHYSICIAN Surgery Vascular Surgery; FAMILY PHYSICIAN Internal Medicine | DX: I65.23 Occlusion and stenosis of bilateral carotid arteries (principal) | CPT/HCPCS: 93880 ==

== ENCOUNTER 2024-08-03 11:00 | Outpatient (RCR) | payer MEDICARE, OTHER, SELFPAY | END 2024-08-03 12:44 | disposition home or self-care (01) | LOC: CRHB 11:00 | PROVIDERS: ATTENDING PHYSICIAN Internal Medicine Cardiovascular Disease; FAMILY PHYSICIAN Internal Medicine | DX: I25.10 Atherosclerotic heart disease of native coronary artery without angina pectoris (principal); Z95.1 Presence of aortocoronary bypass graft | CPT/HCPCS: G0422; G0423 ==